=== PATIENT | female | born 1950 | race Caucasian/White ===

== ENCOUNTER 2018-01-23 07:28 | Outpatient (CLI) | payer MEDICARE, OTHER, SELFPAY ==
[2018-01-23] VITALS (9 sets, daily range): BP systolic 120–142; BP diastolic 67–89; PULSE 65–74; RESP 14–20; TEMP 36.6; O2SAT 97–100
--- NOTE | 2018-01-23 07:32 | DI.RAD.S_ITS ---
PROCEDURE: PAIN L/S FACET INJ/BLK 1ST [place] COMPARISON: None. INDICATIONS: SPONDYLOSIS FINDINGS: 6 spot fluoroscopic intraoperative views demonstrating placement of spinal needles in the left and right L4, L5 and S1 levels. Appropriate placement was confirmed with contrast injection. Dictated by: Deonte Chapa M.D. on 01/23/2018 at 13:27 Approved by: Deonte Chapa M.D. on 01/23/2018 at 13:29
[2018-01-23] MEDS: MIDAZOLAM 5 MG/5 ML VIAL IV (08:25)
[2018-01-23] MEDS: IOPAMIDOL 15 ML VIAL 3 ML INJ (08:34)
[2018-01-23] MEDS: BETAMETHASONE 30 MG/5 ML MDV 6 MG INJ (08:34)
[2018-01-23] MEDS: BUPIVACAINE 0.5% (PF) VIAL 2 ML INJ (08:35)
--- NOTE | 2018-01-23 08:47 | P.PCN_ITS ---
Procedures Date/Time Date of procedure: 01/23/18 Time of procedure: 08:45 General Procedure description: POST OP DIAGNOSIS 1. FACET ARTHROPATHY PROCEDURES 1. BILATERAL- L4, L5 and S1 MB BLOCKS PHYSICIAN: DO KIP Rodriguez Ely is referred by Dr. Mcclain for treatment of Bilateral Axial LBP. DESCRIPTION OF PROCEDURE Fluoroscopically guided, contrast-controlled bilateral L4, L5 and S1 medial branch blocks with 0.5cc of 0.5% Marcaine. Following denial of allergy and review of potential side effects and complications, including, but not necessarily limited to, infection, allergic reaction, local tissue breakdown, nerve injury, paralysis, stroke and possible , the patient indicated that the patient understood and agreed to proceed. An informed consent document was signed by the patient, witnessed by a nurse, and placed in the patient's chart. After review of previous anaesthesic history and IV conscious sedation the patient was deemed safe to proceed with todays procedure with IV conscious sedation as ASA class II designation. Safety time-out was performed to confirm patient ID, procedure to be performed and site of procedure. IV sedation was accomplished with a combination of 4mg of Versed and 50mcg of Fentanyl administered by the RN after DO order, titrated to patient comfort during the course of the procedure while the patient remained responsive to all verbal commands In the prone position, following sterile prep and drape of the lumbar region, the right L4, L5 and S1 anatomical location of the medial branch of the dorsal ramus was identified fluoroscopically. Subsequently an anesthetic skin wheal using 1% lidocaine solution was initiated at each of the anatomical spots. Subsequently then a 22-gauge 3.5-inch spinal needle was atraumatically introduced and advanced under fluoroscopic guidance at each of the corresponding sites at the right L4, L5 and S1 MB. After negative aspiration, 0.2 cc of Isovue 200 was injected, confirming placement without vascular or intrathecal uptake. Subsequently then 0.5 cc of 0.5% Marcaine solution was injected at each of the corresponding sites at the right L4, L5 and S1 medial branch locations. The identical procedure was replicated on the left. The patient tolerated the procedure well without signs or symptoms of complications prior to transfer to the recovery area continued monitoring without incident. Post-procedure, the patient was monitored initiating provocative activities to measure the amount of relief from block of the facetogenic pain. The patient reported a VAS of 7 prior to the procedure and a post-procedure VAS of 1. It has been a pleasure to assist in the diagnostic and therapeutic care of your patient. Total Fluoroscopy Time: 24.8 seconds Total Conscious Sedation Time: 24min POST OP INSTRUCTIONS The patient was provided with a Pain Log to complete over the next several hours and subsequent days prior to the patient's follow up with the ordering physician. 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 The patient is aware , was provided, once again, with a Pain Log and will follow up with the referring physician for review and clinical correlation Anil Coleman DO Complications: none
--- NOTE | 2018-01-23 08:47 | PC.NURSE ---
pt off table and stable,she is awake going to pre procedure room.
== END 2018-01-23 09:21 | disposition home or self-care (01) ==
LOC: RAD 07:30
PROVIDERS: PCP Family Medicine; Visit Provider Physical Medicine & Rehabilitation
DX: M47.817 Spondylosis without myelopathy or radiculopathy, lumbosacral region (principal)
CPT/HCPCS: 64493; 64494; 99152; J0702; J2250

== ENCOUNTER → 2018-01-29 10:08 | Outpatient (CLI) | payer MEDICARE, OTHER, SELFPAY | PROVIDERS: Family Provider Physical Medicine & Rehabilitation; PCP Family Medicine; Referring Provider Orthopaedic Surgery; Visit Provider Family Medicine | DX: M85.851 Other specified disorders of bone density and structure, right thigh (principal); Z78.0 Asymptomatic menopausal state; Z87.891 Personal history of nicotine dependence | CPT/HCPCS: 77080 ==

== ENCOUNTER 2018-03-12 07:34 | Outpatient (CLI) | payer MEDICARE, OTHER, SELFPAY ==
[2018-03-12] VITALS (13 sets, daily range): BP systolic 122–145; BP diastolic 64–90; PULSE 35–80; RESP 16–18; TEMP 36.2; O2SAT 95–100
--- NOTE | 2018-03-12 07:39 | DI.RAD.S_ITS ---
PROCEDURE: PAIN L/S MED/LAT N RFA BILAT INDICATIONS: SPONDYLOSIS FINDINGS: Fluoroscopic spot filming was performed to verify placement of spinal needles at the L4, L5, S1 level(s), as labeled on the films. Appropriate location(s) of the needle tip(s) was confirmed by injection of iodinated contrast. Dictated by: Deonte Chapa M.D. on 03/13/2018 at 9:02 Approved by: Deonte Chapa M.D. on 03/13/2018 at 9:03
[2018-03-12] MEDS: MIDAZOLAM 5 MG/5 ML VIAL IV (09:50)
[2018-03-12] MEDS: fentaNYL 100 MCG/2 ML INJ IV (09:55)
[2018-03-12] MEDS: BUPIVACAINE 0.5% (PF) VIAL 2 ML INJ (10:12)
[2018-03-12] MEDS: LIDOCAINE 1% 20 ML INJ 10 ML INJ (10:12)
--- NOTE | 2018-03-12 10:29 | PC.NURSE ---
TRANSPORTING PT TO POST PROC AREA IN STABLE POSITION
--- NOTE | 2018-03-12 10:32 | P.PCN_ITS ---
Procedures Date/Time Date of procedure: 03/12/18 Time of procedure: 10:31 General Procedure description: PREOP DIAGNOSIS 1. RECALCITRANT FACET ARTHROPATHY, POST OP DIAGNOSIS 1. RECALCITRANT FACET ARTHROPATHY PROCEDURES 1. BILATERAL L4 AND L5 MEDIAL BRANCH RADIOFREQUENCY NEUROTOMY AND S1 DORSAL RAMUS BRANCH RADIOFREQUENCY NEUROTOMY, PHYSICIAN: Anil Coleman DO INDICATIONS: Ely is referred by Dr. Mcclain for treatment of facet arthropathy. DESCRIPTION OF PROCEDURE Right L4 and L5 medial branch radiofrequency neurotomy and right S1 dorsal ramus radiofrequency neurotomy under fluoroscopy with conscious sedation. The patient is well known to this clinic having undergone previous facet injections with good but temporary relief. The patient has experienced appropriate, concordant relief with previous facet and median branch blocks but the patient's pain has been recalcitrant to further conservative measures. Therefore, based upon the patient's relief and persistent symptoms, the patient is considered an appropriate candidate for facet rhizotomy. All of the patient' s questions regarding the risks versus benefits of the procedure, including, but not limited to, bleeding, infection, temporary as well as lasting nerve injury, paralysis, stroke, and , as well treatment alternatives were answered to satisfaction. After obtaining informed consent, denial of pertinent drug allergies, as well as being made aware of the potential risks of bleeding, infection, spinal cord trauma, paralysis, temporary and permanent nerve damage, seizure, stroke, and possible , the patient was brought to the fluoroscopy suite and positioned prone on the fluoroscopy table. The lumbar region was prepped with Betadine and covered with a fenestrated drape in the usual sterile fashion. Appropriate monitors applied including pulse oximeter, pulse, and blood pressure for regular monitoring throughout the procedure. After review of previous anaesthesic history and IV conscious sedation the patient was deemed safe to proceed with todays procedure with IV conscious sedation as ASA class II designation. Safety time-out was performed to confirm patient ID, procedure to be performed and site of procedure. IV sedation was accomplished with a combination of 4mg of Versed and 50mcg of Fentanyl administered by the RN after DO order, titrated to patient comfort during the course of the procedure while the patient remained responsive to all verbal commands. After local infiltration using 1% lidocaine, under fluoroscopic guidance, a 10- cm RF insulated needle with a 10-mm active tip was positioned parallel to the junction of the right sacral ala and the superior articulating process where the S1 dorsal ramus resides. Needle placement was confirmed with sensory stimulation at 50 Hz, with motor stimulation of .5v on the right which produced local stimulation without radicular component. The stimulation was then increased to 1.5v with, once again, only local multifidus stimulation without radicular component. This was then followed by two discreet lesions performed at 80 degrees Celsius for 90 seconds each. The needle was then removed and the identical procedure was performed along the length of the right L5 medial branch with motor stimulation at .7v on the right. The identical procedure was once again performed along the length of the right L4 medial branch with motor stimulation of .5v on the right. The identical procedure was repeated on the left. The patient tolerated the procedure well without signs or symptoms of complications prior to transfer to the recovery area continued monitoring without incident. The patient was then transferred to the recovery area where they were observed for an appropriate period of time after the injection. The patient reported a VAS score of 9 prior to the procedure and a post-procedure VAS of 0. Total Fluoroscopy Time: 22.7 seconds Total Conscious Sedation Time: 34min POST OP INSTRUCTIONS The patient was provided a Pain Log to continue to record the patient's response to the target-specific procedure prior to the patient's follow-up visit with the referring physician. Additionally, specific post-injection care instructions and a contact number to our office were provided if concerns arise regarding possible complications associated with the procedure are suspected. Anil Coleman DO Complications: none
--- NOTE | 2018-03-12 11:00 | PC.NURSE ---
Received pt from Geno LÓPEZ, pt awake and alert, able to move from W/C to chair without difficulty. Resumed monitoring.
--- NOTE | 2018-03-13 11:22 | PC.NURSE ---
Follow Up call made. Pt did not answer so message left.
--- NOTE | 2018-03-13 12:39 | PC.NURSE ---
Called pt back and she answered phone she had a great night, everything was going great until she started to vacuum and then she got a cramp in her back. She just wanted to make sure everything was ok. I let her know it was and that she should try vacuuming again later and see how she does. She understands these instructions.
== END 2018-03-12 11:05 ==
LOC: RAD 07:37
PROVIDERS: Family Provider Physical Medicine & Rehabilitation; PCP Family Medicine; Visit Provider Physical Medicine & Rehabilitation
DX: M47.817 Spondylosis without myelopathy or radiculopathy, lumbosacral region (principal); M47.816 Spondylosis without myelopathy or radiculopathy, lumbar region
CPT/HCPCS: 64635; 64636; 99152; 99153; J2250; J3010

== ENCOUNTER → 2018-04-16 10:21 | Outpatient (CLI) | payer MEDICARE, OTHER, SELFPAY ==
--- NOTE | 2018-04-16 09:00 | DI.MG.S_ITS ---
Patient Name: SAL HUERTAS date: 1950 Sex: F Attending Physician: Johny Indications: Date: 04/16/2018 10:30 At the request of: KENYATTA THOMPSON Procedure: MM screening mammo BI BILATERAL DIGITAL SCREENING MAMMOGRAM 3D/2D WITH CAD: 04/16/2018 CLINICAL: Routine screening. Family history of breast cancer. Comparison is made to exams dated: 02/01/2017 mammogram, 01/31/2016 mammogram, and 01/15/2015 mammogram - [facility]. There are scattered fibroglandular elements in both breasts. Current study was also evaluated with a Computer Aided Detection (CAD) system. No significant masses, calcifications, or other findings are seen in either breast. There has been no significant interval change. IMPRESSION: NEGATIVE There is no mammographic evidence of malignancy. A 1 year screening mammogram is recommended. This exam was interpreted at Station ID: [id number]. NOTE: For mammograms, a report in lay terms will be sent to the patient. Approximately 15% of breast malignancies will not be visualized mammographically. In the management of a palpable breast mass, a negative mammogram must not discourage biopsy of a clinically suspicious lesion. Electronically Signed By: Isael foreman/grupo:04/16/2018 12:40:24 letter sent: Normal Exam ACR BI-RADS Category 1: Negative [id number]
== END ==
PROVIDERS: Family Provider Physical Medicine & Rehabilitation; PCP Family Medicine; Visit Provider Family Medicine
DX: Z12.31 Encounter for screening mammogram for malignant neoplasm of breast (principal); Z80.3 Family history of malignant neoplasm of breast
CPT/HCPCS: 77063; 77067

== ENCOUNTER 2018-04-23 13:10 | Outpatient (CLI) | payer MEDICARE, OTHER, SELFPAY ==
[2018-04-23] VITALS (7 sets, daily range): BP systolic 112–140; BP diastolic 66–99; PULSE 66–80; RESP 16–20; TEMP 36.7; O2SAT 95–100
--- NOTE | 2018-04-23 13:14 | DI.RAD.S_ITS ---
PROCEDURE: PAIN L/S TRANSFORAMINAL INJECT INDICATIONS: SPINAL STENOSIS FINDINGS: Fluoroscopic spot filming was performed to verify placement of spinal needles at the left L2-L3 facet region for epidural steroid injection, as labeled on the films. Appropriate location(s) of the needle tip(s) was confirmed by injection of iodinated contrast. IMPRESSION: Successful needle tip localization on the left adjacent to the left L2-L3 facet region for perineural epidural steroid injection. Dictated by: Hugo Hodgson M.D. on 04/23/2018 at 15:12 Approved by: Hugo Hodgson M.D. on 04/23/2018 at 15:13
[2018-04-23] MEDS: MIDAZOLAM 5 MG/5 ML VIAL IV (13:55)
[2018-04-23] MEDS: BUPIVACAINE 0.25% (PF) VIAL 2 ML INJ (13:59)
[2018-04-23] MEDS: methylPREDNISolone acetate 80 MG/ML VIAL INJ (13:59)
[2018-04-23] MEDS: DEXAMETHASONE 10 MG/ML VIAL 20 MG INJ (13:59)
[2018-04-23] MEDS: IOPAMIDOL 15 ML VIAL 3 ML INJ (13:59)
--- NOTE | 2018-04-23 14:08 | PC.NURSE ---
pt tolerated procedure well. Able to get off table with minimal assist. Transferred pt via W/C to pre procedure room for continued monitoring with Geno LÓPEZ.
--- NOTE | 2018-04-23 14:13 | P.PCN_ITS ---
Procedures Date/Time Date of procedure: 04/23/18 Time of procedure: 14:12 General Procedure description: PROVIDER: Anil Coleman DO Operative Note PREOP DIAGNOSIS 1. FORAMINAL STENOSIS WITH LE SYMPTOMS, POST OP DIAGNOSIS 1. FORAMINAL STENOSIS WITH LE SYMPTOMS, PROCEDURES 1. FLUOROSCOPICALLY GUIDED CONTRAST CONTROLLED TRANSFORAMINAL EPIDURAL STEROID INJECTION - LEFT L3/4 TFESI SURGEON: Anil Coleman, DO INDICATIONS Ely is referred by Dr. Mcclain for treatment of Foraminal Stenosis with left LE Symptoms FINDINGS Foraminal Nerve Root Compression secondary to disc disease and facet hypertrophy DESCRIPTION OF PROCEDURE Following denial of allergy and review of potential side effects and complications, including, but not necessarily limited to, infection, allergic reaction, local tissue breakdown, stroke, temporary or permanent nerve injury, paralysis, and possible , the patient indicated that the patient understood and agreed to proceed. An informed consent document was signed by the patient, witnessed by a nurse, and placed in the patient's chart. Additionally, other treatment options including medications, modalities, and physical therapy were reviewed with the patient. After review of previous anaesthesic history and IV conscious sedation the patient was deemed safe to proceed with todays procedure with IV conscious sedation as ASA class II designation. Safety time-out was performed to confirm patient ID, procedure to be performed and site of procedure. IV sedation was accomplished with a combination of 4mg was administered by the RN after DO order , titrated to patient comfort during the course of the procedure while the patient remained responsive to all verbal commands In the prone position following sterile prep and drape of the lumbar region, the left L3/4 posterior neuroforamen was identified fluoroscopically. The skin was anesthetized via a 25-gauge 1.5-inch needle with 1% lidocaine solution. At this point, a 25-gauge 3.5-inch spinal needle was atraumatically introduced and advanced under fluoroscopic guidance through the posterior left L3/4 neuroforamen to approximately the anterior aspect of the canal. Depth was confirmed on lateral view. Following negative aspiration, injection of approximately 1.5 cc of Isovue 200 under live fluoroscopy in the AP view confirmed excellent flow along the nerve root, into the epidural space without vascular or intrathecal uptake observed Radiological data, including multiple fluoroscopic views of the lumbosacral spine, reveal a spinal needle at the left L3/4 posterior neuroforamen. Subsequent views show flow of contrast material flowing superiorly and inferiorly along the nerve root confirming epidural flow. Subsequently, a test dose of 1.5 cc of 1% lidocaine solution was administered and patient was observed for two minutes for signs or symptoms of complications , including abdominal pain, shortness of breath, bilateral upper or lower extremity weakness, nausea and vomiting, prior to steroid injection. At this point, a total of 3 cc or 20 mg of dexamethasone and 80mg Depo medrol was injected without incident. The patient tolerated the procedure well without signs or symptoms of complications prior to transfer to the recovery area continued monitoring without incident. The patient was then transferred to the recovery area where they were observed for an appropriate time after the injection. The patient reported a VAS score of 7 prior to the procedure and a post-procedure VAS of 0. Total Fluoroscopy Time: 24.2 seconds Total Conscious Sedation Time: 24min POST OP INSTRUCTIONS The patient was provided a Pain Log to continue to record their response to the target-specific procedure prior to follow-up visit with their referring physician. Additionally, specific post-injection care instructions and a contact number to our office were provided if concerns arise regarding possible complications associated with the procedure are suspected. Anil Coleman, Complications: none
--- NOTE | 2018-04-24 13:07 | PC.NURSE ---
Follow up call made and pt reports the left hip is aching, didn't sleep well and has a little right sided sciatica but its just an ache 2/10 a twinge, She said I think we got it this time. She was appreciative for our care.
== END 2018-04-23 14:38 | disposition home or self-care (01) ==
LOC: RAD 13:13
PROVIDERS: PCP Family Medicine; Visit Provider Physical Medicine & Rehabilitation
DX: M48.062 Spinal stenosis, lumbar region with neurogenic claudication (principal); M51.16 Intervertebral disc disorders with radiculopathy, lumbar region
CPT/HCPCS: 64483; 99152; J1040; J1100; J2250

== ENCOUNTER 2018-05-14 08:11 | Outpatient (CLI) | payer MEDICARE, OTHER, SELFPAY ==
[2018-05-14] VITALS (7 sets, daily range): BP systolic 116–125; BP diastolic 66–78; PULSE 65–71; RESP 16; TEMP 36.3; O2SAT 96–99
--- NOTE | 2018-05-14 08:13 | DI.RAD.S_ITS ---
PROCEDURE: PAIN SI JOINT INJECTION INDICATIONS: SPONDYLOSIS FINDINGS: Fluoroscopic spot filming was performed to verify placement of spinal needles at the left sacroiliac joint level(s), as labeled on the films. Appropriate location(s) of the needle tip(s) was confirmed by injection of iodinated contrast. Dictated by: Deonte Chapa M.D. on 05/14/2018 at 10:51 Approved by: Deonte Chapa M.D. on 05/14/2018 at 10:51
--- NOTE | 2018-05-14 08:51 | PC.NURSE ---
pt reporting had difficulty getting call backs.
[2018-05-14] MEDS: MIDAZOLAM 5 MG/5 ML VIAL IV (09:15)
[2018-05-14] MEDS: fentaNYL 100 MCG/2 ML INJ IV (09:17)
[2018-05-14] MEDS: IOPAMIDOL 15 ML VIAL 3 ML INJ (09:23)
[2018-05-14] MEDS: BETAMETHASONE 30 MG/5 ML MDV 12 MG INJ (09:23)
[2018-05-14] MEDS: BUPIVACAINE 0.5% (PF) VIAL 2 ML INJ (09:23)
--- NOTE | 2018-05-14 09:24 | PC.NURSE ---
assisting pt off table and transporting to post proc area in stable condition
--- NOTE | 2018-05-14 09:31 | P.PCN_ITS ---
Procedures Date/Time Date of procedure: 05/14/18 Time of procedure: 09:30 General Procedure description: PREOP Dx: Sacroiliac joint pain/DJD POST OP DX: Sacroiliac Joint Pain/DJD Procedures: Fluoroscopic guided contrast controlled left sacroiliac joint injection Physician: Anil Coleman D.O. Indications: Ely is referred by for treatment of left sacroiliac joint DJD Description of procedure Fluoroscopic guided, contrast controlled left sacroiliac joint injection Following denial of allergies and review of potential side effects and complications, including, but not necessarily limited to, infection, allergic reaction, local tissue breakdown, temporary as well as permanent nerve injury, paralysis, stroke and possible , the patient indicated that they understood and agreed to proceed. An informed consent was signed by the patient , witnessed by a nurse, and placed in the patient's chart. Additionally, other treatment options including modalities, medications, and physical therapy were reviewed with the patient. After review of previous anaesthesic history and IV conscious sedation the patient was deemed safe to proceed with todays procedure with IV conscious sedation as ASA class II designation. Safety time-out was performed to confirm patient ID, procedure to be performed and site of procedure. IV sedation was accomplished with a combination of 3mg of Versed and 50mcg of Fentanyl was administered by the RN after DO order, titrated to patient comfort during the course of the procedure while the patient remained responsive to all verbal commands. In the prone position following sterile prep and drape of the pelvic region, the hyper lucency on in the inferior aspect of the left sacroiliac joint was identified fluoroscopically the skin was anesthetized be a 25 gauge 1 eventual with approximately 2 cc of 1% lidocaine solution. At this point, a 22 gauge 3 in spinal needle was atraumatically introduced and advanced under fluoroscopic guidance into the inferior aspect of the left sacroiliac joint. Following negative aspiration, approximately 0.3 cc of Isovue-300 was injected confirming intra-articular placement without vascular uptake. Radiographic data, including multiple fluoroscopic views of the pelvis, reveals a spinal needle in the left sacroiliac joint hyper lucent zone. Subsequent view show flow contrast tear superiorly and inferiorly within the joint capsule without vascular intrathecal uptake. At this point a total of 1 cc or 0 8 of 0.5% Marcaine was combined with 1 cc of 6 mg of betamethasone was injected without incident. The patient tolerated the procedure well without signs or symptoms of complications prior to transfer to the recovery area for further monitoring. The patient was then transferred to the recovery area with a bur observed for an appropriate time after the injection. The patient reverted a vas score of 7 prior to the procedure and postprocedure vas of 1. Total fluoroscopy time: 22.7 sec Total conscious sedation time: 24 min Postop instructions The patient was provided with a pain like to continue to record the patient's response to the target specific procedure prior to the patient's follow-up visit with the referring physician. Additionally, specific post injection care instructions and a contact number to our office were provided if concerns arise regarding the possible complications associated with procedure are suspected. Anil Coleman D.O. Complications: none
--- NOTE | 2018-05-14 09:43 | PC.NURSE ---
alert and awake, conversing with friends, tolerating cookies and water. denies pain, denies paresthesia, moving all extremities well.
--- NOTE | 2018-05-14 10:59 | PC.NURSE ---
late 928 pt returned via w/c, post procedure, is alert and able to get from w/c to chair with standby assist, and resumed monitoring from jayjay estrada.
--- NOTE | 2018-05-15 13:48 | PC.NURSE ---
FOLLOW UP CALL MADE. PT C/O INCREASED PAIN TODAY DUE TO LONG RIDE IN CAR BUT DENIES OTHER QUESTIONS/CONCERNS. REMINDED PT THAT IT IS COMMON FOR PAIN TO INCREASE THE DAY AFTER THE PROCEDURE. ENCOURAGED HER TO CONTINUE PAIN LOG AND CALL CLINIC IF THINGS CONTINUE TO GET WORSE.
== END 2018-05-14 10:01 | disposition home or self-care (01) ==
LOC: RAD 08:12
PROVIDERS: PCP Family Medicine; Visit Provider Physical Medicine & Rehabilitation
DX: M53.3 Sacrococcygeal disorders, not elsewhere classified (principal); M47.898 Other spondylosis, sacral and sacrococcygeal region; M47.817 Spondylosis without myelopathy or radiculopathy, lumbosacral region; M41.20 Other idiopathic scoliosis, site unspecified
CPT/HCPCS: 27096; 99152; J0702; J2250; J3010

== ENCOUNTER 2018-06-11 07:29 | Outpatient (CLI) | payer MEDICARE, OTHER, SELFPAY ==
[2018-06-11] VITALS (10 sets, daily range): BP systolic 114–138; BP diastolic 69–80; PULSE 67–75; RESP 16; TEMP 36.8; O2SAT 98–100
--- NOTE | 2018-06-11 07:31 | DI.RAD.S_ITS ---
PROCEDURE: PAIN L/S MED/LAT N RFA INDICATIONS: SPONDYLOSIS FINDINGS: Fluoroscopic spot filming was performed to verify placement of spinal needles at the L5, S1 and S2 level(s), as labeled on the films. Appropriate location(s) of the needle tip(s) was confirmed by injection of iodinated contrast. IMPRESSION: Fluoroscopy for pain management Dictated by: Cammie Ramirez M.D. on 06/11/2018 at 11:18 Approved by: Cammie Ramirez M.D. on 06/11/2018 at 11:21
[2018-06-11] MEDS: fentaNYL 100 MCG/2 ML INJ IV (08:30)
[2018-06-11] MEDS: MIDAZOLAM 5 MG/5 ML VIAL IV (08:30)
[2018-06-11] MEDS: BUPIVACAINE 0.5% (PF) VIAL 2 ML INJ (08:40)
[2018-06-11] MEDS: BETAMETHASONE 30 MG/5 ML MDV 12 MG INJ (08:40)
[2018-06-11] MEDS: LIDOCAINE 1% 20 ML INJ 10 ML INJ (08:40)
--- NOTE | 2018-06-11 09:01 | PC.NURSE ---
ASSISTING PT OFF TABLE AND TRANSPORTING TO POST PROC AREA IN STABLE CONDITION
--- NOTE | 2018-06-11 09:05 | PM.PROC.1 ---
Procedures Date/Time Date of procedure: 06/11/18 Time of procedure: 09:05 General Procedure description: PREOP DIAGNOSIS 1. RECALCITRANT FACET ARTHROPATHY, POST OP DIAGNOSIS 1. RECALCITRANT FACET ARTHROPATHY, PROCEDURES 1. LEFTT L5 MEDIAL BRANCH RADIOFREQUENCY NEUROTOMY AND LEFT S1 and S2 DORSAL RAMUS RADIOFREQUENCY NEUROTOMY PHYSICIAN: Anil Coleman DO INDICATIONS is referred by for treatment of facet arthropathy. DESCRIPTION OF PROCEDURE Left L5 medial branch radiofrequency neurotomy and left S1 and S2 dorsal ramus branch radiofrequency neurotomy under fluoroscopy with conscious sedation. The patient is well known to this clinic having undergone previous facet injections with good but temporary relief. The patient has experienced appropriate, concordant relief with previous facet and median branch blocks but the patient's pain has been recalcitrant to further conservative measures. Therefore, based upon the patient's relief and persistent symptoms, the patient is considered an appropriate candidate for facet rhizotomy. All of the patient's questions regarding the risks versus benefits of the procedure, including, but not limited to, bleeding, infection, temporary as well as lasting nerve injury, paralysis, stroke, and , as well treatment alternatives were answered to satisfaction. After obtaining informed consent, denial of pertinent drug allergies, as well as being made aware of the potential risks of bleeding, infection, spinal cord trauma, paralysis, temporary and permanent nerve damage, seizure, stroke, and possible , the patient was brought to the fluoroscopy suite and positioned prone on the fluoroscopy table. The lumbar region was prepped with Betadine and covered with a fenestrated drape in the usual sterile fashion. Appropriate monitors applied including pulse oximeter, pulse, and blood pressure for regular monitoring throughout the procedure. IV sedation was accomplished with a combination of 3mg of Versed and 50mcg of Fentanyl titrated to patient comfort during the course of the procedure while the patient remained responsive to all verbal commands. After local infiltration using 1% lidocaine, under fluoroscopic guidance, a 10-cm RF insulated needle with a 10-mm active tip was positioned parallel to the junction of the left sacral ala and the superior articulating process where the S1 and S2 dorsal ramus resides. Needle placement was confirmed with sensory stimulation at 50 Hz, with motor stimulation of .5v on the left which produced local stimulation without radicular component. The stimulation was then increased to 1.5v with, once again, only local multifidus stimulation without radicular component. This was then followed by two discrete lesions performed at 80 degrees Celsius for 90 seconds each. The needle was then removed and the identical procedure was performed along the length of the left L5 medial branch with motor stimulation at .7v on the left. The patient tolerated the procedure well without signs or symptoms of complications prior to transfer to the recovery area continued monitoring without incident. The patient was then transferred to the recovery area where they were observed for an appropriate period of time after the injection. The patient was then transferred to the recovery area where they were observed for an appropriate period of time after the injection. The patient reported a VAS score of 9 prior to the procedure and a post-procedure VAS of 0. Total Fluoroscopy Time: 22.7 seconds Total Conscious Sedation Time: 34min POST OP INSTRUCTIONS The patient was provided a Pain Log to continue to record the patient's response to the target-specific procedure prior to the patient's follow-up visit with the referring physician. Additionally, specific post-injection care instructions and a contact number to our office were provided if concerns arise regarding possible complications associated with the procedure are suspected. Anil Coleman DO Complications: none
--- NOTE | 2018-06-11 09:09 | P.PCN_ITS ---
Procedures Date/Time Date of procedure: 06/11/18 Time of procedure: 09:05 General Procedure description: PREOP DIAGNOSIS 1. RECALCITRANT FACET ARTHROPATHY, POST OP DIAGNOSIS 1. RECALCITRANT FACET ARTHROPATHY, PROCEDURES 1. LEFTT L5 MEDIAL BRANCH RADIOFREQUENCY NEUROTOMY AND LEFT S1 and S2 DORSAL RAMUS RADIOFREQUENCY NEUROTOMY PHYSICIAN: Anil Coleman DO INDICATIONS is referred by for treatment of facet arthropathy. DESCRIPTION OF PROCEDURE Left L5 medial branch radiofrequency neurotomy and left S1 and S2 dorsal ramus branch radiofrequency neurotomy under fluoroscopy with conscious sedation. The patient is well known to this clinic having undergone previous facet injections with good but temporary relief. The patient has experienced appropriate, concordant relief with previous facet and median branch blocks but the patient's pain has been recalcitrant to further conservative measures. Therefore, based upon the patient's relief and persistent symptoms, the patient is considered an appropriate candidate for facet rhizotomy. All of the patient's questions regarding the risks versus benefits of the procedure, including, but not limited to, bleeding, infection, temporary as well as lasting nerve injury, paralysis, stroke, and , as well treatment alternatives were answered to satisfaction. After obtaining informed consent, denial of pertinent drug allergies, as well as being made aware of the potential risks of bleeding, infection, spinal cord trauma, paralysis, temporary and permanent nerve damage, seizure, stroke, and possible , the patient was brought to the fluoroscopy suite and positioned prone on the fluoroscopy table. The lumbar region was prepped with Betadine and covered with a fenestrated drape in the usual sterile fashion. Appropriate monitors applied including pulse oximeter, pulse, and blood pressure for regular monitoring throughout the procedure. IV sedation was accomplished with a combination of 3mg of Versed and 50mcg of Fentanyl titrated to patient comfort during the course of the procedure while the patient remained responsive to all verbal commands. After local infiltration using 1% lidocaine, under fluoroscopic guidance, a 10- cm RF insulated needle with a 10-mm active tip was positioned parallel to the junction of the left sacral ala and the superior articulating process where the S1 and S2 dorsal ramus resides. Needle placement was confirmed with sensory stimulation at 50 Hz, with motor stimulation of .5v on the left which produced local stimulation without radicular component. The stimulation was then increased to 1.5v with, once again, only local multifidus stimulation without radicular component. This was then followed by two discrete lesions performed at 80 degrees Celsius for 90 seconds each. The needle was then removed and the identical procedure was performed along the length of the left L5 medial branch with motor stimulation at .7v on the left. The patient tolerated the procedure well without signs or symptoms of com plications prior to transfer to the recovery area continued monitoring without incident. The patient was then transferred to the recovery area where they were observed for an appropriate period of time after the injection. The patient was then transferred to the recovery area where they were observed for an appropriate period of time after the injection. The patient reported a VAS score of 9 prior to the procedure and a post- procedure VAS of 0. Total Fluoroscopy Time: 22.7 seconds Total Conscious Sedation Time: 34min POST OP INSTRUCTIONS The patient was provided a Pain Log to continue to record the patient's response to the target-specific procedure prior to the patient's follow-up visit with the referring physician. Additionally, specific post-injection care instructions and a contact number to our office were provided if concerns arise regarding possible complications associated with the procedure are suspected. Anil Coleman DO Complications: none
--- NOTE | 2018-06-11 09:15 | PC.NURSE ---
pt returned post procedure via wheelchair, able to get into chair with minimal assist. Pt awake and alert. Resumed monitoring from Geno LÓPEZ.
--- NOTE | 2018-06-12 12:48 | PC.NURSE ---
FOLLOW UP CALL MADE, PT STATES SHE IS EXPERIENCING DECREASED PAIN AND DENIES QUESTIONS/CONCERNS.
== END 2018-06-11 09:32 ==
LOC: RAD 07:30
PROVIDERS: PCP Family Medicine; Visit Provider Physical Medicine & Rehabilitation
DX: M47.816 Spondylosis without myelopathy or radiculopathy, lumbar region (principal); M47.817 Spondylosis without myelopathy or radiculopathy, lumbosacral region; M41.20 Other idiopathic scoliosis, site unspecified
CPT/HCPCS: 64635; 64636; 99152; J0702; J1100; J2250; J3010

== ENCOUNTER → 2018-07-12 13:09 | Outpatient (CLI) | payer MEDICARE, OTHER, SELFPAY ==
--- NOTE | 2018-07-12 14:33 | DI.MRI.S_ITS ---
PROCEDURE: MR LUMBAR SPINE WO CON INDICATIONS: lumbosacral spondylosis TECHNIQUE: Noncontrast sagittal T1 spin echo and T2 fast echo, sagittal STIR, axial T1 and T2 fast spin echo through the lumbar spine. In cases with scoliosis, additional coronal T2 fast spin echo may be performed. COMPARISON: [facility], , L-SPINE WITHOUT CONTRAST, 10/13/2016, 17:49. FINDINGS: Image quality: Excellent. Alignment and Curvature: Mild to moderate dextroscoliosis centered at L2-3 level is seen. Minimal anterolisthesis of L4 on L5 is noted. Bone Marrow: Decreased intervertebral disc space and degenerative endplate changes are noted throughout lumbar spine more prominent at L2-3 and L4-5 levels. No acute vertebral body compression fractures. Spinal Cord: Conus medullaris terminates at the L1 level. Visualized cord demonstrates normal signal and size. Paraspinous Soft Tissues: No paravertebral masses. L1-L2: Normal appearance. L2-L3: There is near-complete loss of intervertebral disc space and disc desiccation. Diffuse disc bulge and bilateral facet arthrosis is seen with no significant central canal stenosis or neuroforaminal narrowing. L3-L4: There is broad-based disc bulge and bilateral facet arthrosis causing mild central canal stenosis and mild bilateral neuroforaminal narrowing. L4-L5: Right base disc bulge and bilateral facet arthrosis is seen causing mild/moderate central canal stenosis and left worse than right bilateral neuroforaminal narrowing. Bulging disc likely contacting exiting left L4 nerve root at this level.. L5-S1: There is broad-based disc bulge and bilateral facet arthrosis causing moderate right-sided neuroforaminal narrowing. No significant central canal stenosis.. IMPRESSION: 1. Mild to moderate dextroscoliosis of lumbar spine centered at L2-3 level. Flores-white anterolisthesis of L4 on L5. No compression fracture. 2. Degenerative disc bulge and bilateral facet arthrosis throughout lumbar spine causing mild to moderate central canal stenosis and bilateral neuroforaminal narrowing more prominent at L4-5 level as above. Dictated by: Randal Nieto M.D. on 07/12/2018 at 15:21 Approved by: Randal Nieto M.D. on 07/12/2018 at 15:26
== END ==
PROVIDERS: PCP Family Medicine; Visit Provider Physical Medicine & Rehabilitation
DX: M47.817 Spondylosis without myelopathy or radiculopathy, lumbosacral region (principal); M47.816 Spondylosis without myelopathy or radiculopathy, lumbar region; M51.36 Other intervertebral disc degeneration, lumbar region; M51.37 Other intervertebral disc degeneration, lumbosacral region; M48.061 Spinal stenosis, lumbar region without neurogenic claudication; M48.07 Spinal stenosis, lumbosacral region; M43.16 Spondylolisthesis, lumbar region; M41.26 Other idiopathic scoliosis, lumbar region; M99.89 Other biomechanical lesions of abdomen and other regions
CPT/HCPCS: 72148

== ENCOUNTER → 2018-11-13 08:03 | Outpatient (CLI) | payer MEDICARE, OTHER, SELFPAY ==
--- NOTE | 2018-11-22 15:45 | P.HOLT.S_ITS ---
Javascript Ui Developer Report Referral & Results Date Patient Seen: 11/13/18 Requesting provider: Anil Mcclain Indication: Palpitations Duration of monitoring (days): 3 Diary information: There were 3 patient diary entries and 3 patient triggered events. These were associated variously was sinus rhythm, ventricular bigeminy, and ventricular ectopic depolarizations Data: Minimum heart rate identified was 46 beats per minute at 04:46 on 11/14/2018 Maximum sinus heart rate was 120 beats per minute at 09:58 on 11/14/2018 Maximum overall heart rate was 140 beats per minute at 00:02 on 11/16/2017 and associated with a supraventricular tachycardia/atrial tachycardia Patient had rare PACs Patient had more frequent PVCs, approximately 2.5% of identified beats were PVCs including a 12nd run of ventricular bigeminy and 1 minutes 7 seconds a run of ventricular trigeminy No other supraventricular dysrhythmias or runs were identified Impression: 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 Based on patient's reported events, most likely etiology for reported palpitations are ventricular premature depolarizations
== END ==
PROVIDERS: PCP Family Medicine; Visit Provider Family Medicine
DX: R00.2 Palpitations (principal)
CPT/HCPCS: 0296T; 0298T

== ENCOUNTER 2019-03-14 11:55 | Day surgery (SDC) | payer MEDICARE, OTHER, SELFPAY ==
[2019-03-14] VITALS (7 sets, daily range): BP systolic 110–129; BP diastolic 50–71; PULSE 67–95; RESP 13–22; TEMP 36.3–36.8; O2SAT 94–98; BMI 26.5
--- NOTE | 2019-03-14 07:42 | P.HP_ITS ---
History of Present Illness History of Present Illness Date Patient Seen: 03/14/19 Time Patient Seen: 13:06 Chief complaint: [id number] SCREENING COLONOSCOPY Narrative: 68 year old female comes in today for consideration of a screening colonoscopy. She has had 2 previous colonoscopies with a history of polyps. There have been no lower GI symptoms suggesting disease such as change in bowel habits, bleeding, abdominal pain or anemia. There's been no family history of colon cancer or colon polyps. Overall health issues have been stable, including no major cardiac events for at least 6 weeks. PCP: Dr. Mcclain Past medical history: Degenerative joint disease, thumb Anxiety Obstructive sleep apnea Sciatica Hyperlipidemia Lichen sclerosis Past surgical history: Right partial medial meniscus tear repair Family history: Father: Heart disease, hypertension, hyperlipidemia Mother: Lung cancer, liver cancer Siblings: Breast cancer Family history of coronary heart disease in male less than 55 Social history: , works as a private caregiver. Patient History Family & Social History Tobacco & Substance use: Smoking Status Former smoker alcohol intake current Meds Home Medications and Allergies Home Medications Medication Instructions Recorded Confirmed Type Thera M Plus (ferrous fumarat) 1 tab PO DAILY #0 11/29/08 03/14/19 History ascorbic acid (vitamin C) [Vitamin 500 mg PO BID #0 11/29/08 03/14/19 History C] citalopram 40 mg PO DAILY #0 11/29/08 03/14/19 History simvastatin [Zocor] 20 mg PO BEDTIME #0 11/29/08 03/14/19 History tramadol 50 mg tablet 50 mg PO TID PRN #60 tab 07/17/18 03/14/19 Rx acetaminophen 500 mg tablet 1,000 mg PO DAILY tab 02/11/19 03/14/19 History baclofen 10 mg tablet 10 mg PO TID 02/11/19 03/14/19 History zinc/mag/vit d PO DAILY 02/11/19 02/11/19 History glucosamine lia-swzvckjzbw-fce 1 tab PO DAILY 03/14/19 03/14/19 History hydralazine 25 mg PO DAILY 03/14/19 03/14/19 History metoprolol succinate 25 mg PO BID 03/14/19 03/14/19 History qywz-vqct-hjh-zco-peg-uzwi-hor 1 tab PO DAILY 03/14/19 03/14/19 History [Tumersaid] Allergies Allergy/AdvReac Type Severity Reaction Status Date / Time No Known Drug Allergies Allergy Verified 03/14/19 12:12 Review of Systems Review of Systems ROS Unobtainable: All systems reviewed & are unremarkable except as noted in HPI and below Exam Narrative Exam Narrative: GENERAL: Alert and oriented, appearing stated age and in no acute distress. HEENT: Head normocephalic/atraumatic. LUNGS: Clear to ausculation bilaterally, no wheezes, rhonchi or rales. CV: Normal S1 and S2 with regular rate and rhythm, no audible murmurs, rubs or gallops. ABDOMEN: Soft, non-tender, non-distended, no organomegaly. Positive bowel sounds. EXTREMITIES: No clubbing, cyanosis, or edema. NEURO: Cranial nerves II through XII grossly intact, no focal deficits. PSYCH: Alert and oriented x 3. SKIN: No concerning lesions. Assessment & Plan Assessment & Plan narrative: 1. History of colon polyps 2. Screening for colon cancer Plan for colonoscopy. The nature and character of the procedure as well as anticipated results were discussed. The possibility of not completing the p rocedure was also discussed. Possible complications including aspiration pneumonia, bleeding, perforation and reaction to medications either for sedation or preparation and missed lesions were discussed. Questions were answered and proceeding to the colonoscopy was elected. Informed consent signed. I sincerely appreciate the referral allowing me to participate in this patient's care. Please contact me with any questions or concerns.
--- NOTE | 2019-03-14 07:47 | PM.OP.ENDO ---
Operative Date/Time/Diagnoses Date of procedure: 03/14/19 Time of procedure: 13:07 Pre-op diagnosis: 1. History of colon polyps 2. Screening for colon cancer Post-op diagnosis: other ( 1. Normal colonoscopy) Procedure & Clinicians Study performed: Colonoscopy Same procedure as scheduled: Yes Indications: 1. History of colon polyps 2. Screening for colon cancer Surgeon: Alanna Delaney Procedure Notes SCOAP/Timeout: 1:10 p.m. Procedure in detail: ENDOSCOPIST: Alanna Delaney MD Sedation RN: Janell Unger RN Sedation start time: 13:15 Sedation end time: 13:43 PROCEDURE: Colonoscopy INDICATIONS: 1. History of colon polyps 2. Screening for colon cancer MEDICATION: Levsin 0.125 mg sublingual, Versed 5 mg, fentanyl 250 mcg, and Romazicon 0.4 mg. ASA CLASS: 2 CECAL WITHDRAWAL TIME: 13 minutes COMPLICATIONS: Reversal of versed with Romazicon due to shallow breathing with excellent effect. EXTENT OF PROCEDURE: Cecum. QUALITY OF PREP: Good with portions of liquid stool. PROCEDURE: Prior to insertion of the colonoscope, a digital rectal examination was accomplished with circumferential palpation of the distal rectal mucosa without significant findings being noted. The high-definition pediatric colonoscope was passed into the rectum in the usual fashion and advanced over to the cecum with difficulty due to extreme tortuosity. Patient was in pain and increasing doses of fentanyl up to 250 mcg were administered with some but not total relief of symptoms. An additional 1 mg of Versed beyond the initial 4 mg was then given and patient developed shallow breathing, Romazicon 0.2 mg x2 administered with good effect. Patient remained comfortable throughout the remainder of the procedure. The ileocecal valve, appendiceal stoma, and medial wall all could be inspected and no abnormalities were seen. ASCENDING COLON: As the colonoscope was withdrawn, care was taken to expose and inspect the haustral folds and no abnormalities were seen. HEPATIC FLEXURE: Normal no polyps, diverticula or other abnormalities. TRANSVERSE COLON: Normal no polyps, diverticula or other abnormalities. DESCENDING COLON: Normal no polyps, diverticula or other abnormalities. SIGMOID COLON: Normal no polyps, diverticula or other abnormalities. RECTUM: Normal. J maneuver was produced. There was no significant perianal disease. The J maneuver was broken. The remainder of the rectum was inspected and there was no external hemorrhoid disease. The scope was withdrawn. IMPRESSION: 1. Normal colonoscopy PLAN: 1. Repeat colonoscopy in 5 years. 2. Will plan for anesthesiology assist at next colonoscopy secondary to patient's tortuous colon and need for deeper sedation. The possibility of a missed lesion including a malignancy has been discussed with the patient previously. Potential alarm symptoms have been discussed and should be reported immediately. Scope withdrawal time: 13 Sedation minutes: 28 Specimen(s): none sent Complications: other ( Reversal of Versed needed, accomplished with excellent result. Patient stable throughout.) Impression: Normal colonoscopy Post-procedure Recommendations: Colonscopy in 5 years Follow up: as needed Disposition: PACU
[2019-03-14] MEDS: SODIUM CHLORIDE 0.9% 1,000 ML 200 ML IV (12:35)
[2019-03-14] MEDS: HYOSCYAMINE 0.125 MG TABLET PO (12:55)
[2019-03-14] MEDS: fentaNYL 250 MCG/5 ML INJ IV (13:08)
[2019-03-14] MEDS: MIDAZOLAM 5 MG/5 ML VIAL IV (13:09)
[2019-03-14] MEDS: FLUMAZENIL 0.5 MG/5 ML MDV 0.2 MG IV ×2 (13:28→13:29)
--- NOTE | 2019-03-14 14:05 | SUR.PHASEI ---
Pt to PACU awake/drowsy, denies pain/nausea. Dr. lomax here talking with patient, explained drug reversal, including why it was given.
--- NOTE | 2019-03-14 14:17 | SUR.PHASEI ---
1415 stable, awake, oriented, denies pain, tolerating juice well.
== END 2019-03-14 15:45 | disposition home or self-care (01) ==
PROVIDERS: PCP Family Medicine; Visit Provider Student in an Organized Health Care Education/Training Program
PROC: 0DJD8ZZ Inspection of Lower Intestinal Tract, Via Natural or Artificial Opening Endoscopic (ICD-10-PCS; CPT 45378; principal; 2019-03-14 13:00)
DX: Z12.11 Encounter for screening for malignant neoplasm of colon (principal); Z86.010 Personal history of colon polyps
CPT/HCPCS: G0105; J2250; J3010

== ENCOUNTER 2019-03-18 09:21 | Outpatient (CLI) | payer MEDICARE, OTHER, SELFPAY ==
[2019-03-18] VITALS (8 sets, daily range): BP systolic 107–130; BP diastolic 61–81; PULSE 57–66; RESP 16; TEMP 36.8; O2SAT 95–100
--- NOTE | 2019-03-18 09:23 | DI.RAD.S_ITS ---
PROCEDURE: PAIN L/S TRANSFORAM INJECT ALBINA COMPARISON: None. INDICATIONS: SPINAL STENOSIS FINDINGS: 7 intraoperative fluoroscopy images demonstrate needle placement at L2-L3 bilaterally. IMPRESSION: Fluoroscopy for pain management. Dictated by: Cammie Ramirez M.D. on 03/18/2019 at 11:55 Approved by: Cammie Ramirez M.D. on 03/18/2019 at 11:56
[2019-03-18] MEDS: MIDAZOLAM 5 MG/5 ML VIAL IV (10:45)
[2019-03-18] MEDS: fentaNYL 100 MCG/2 ML INJ 50 MCG IV (10:45)
[2019-03-18] MEDS: BUPIVACAINE 0.25% (PF) VIAL 2 ML INJ (10:48)
[2019-03-18] MEDS: IOPAMIDOL 15 ML VIAL 3 ML INJ (10:49)
[2019-03-18] MEDS: BETAMETHASONE 30 MG/5 ML MDV 12 MG INJ (10:50)
[2019-03-18] MEDS: DEXAMETHASONE 10 MG/ML VIAL 20 MG INJ (10:51)
--- NOTE | 2019-03-18 11:04 | PM.PROC.1 ---
Procedures Date/Time Date of procedure: 03/18/19 Time of procedure: 11:04 General Procedure description: PROVIDER: Anil Coleman DO Operative Note PREOP DIAGNOSIS 1. FORAMINAL STENOSIS WITH BILATERAL LE SYMPTOMS POST OP DIAGNOSIS 1. FORAMINAL STENOSIS WITH BILATERAL LE SYMPTOMS PROCEDURES 1. FLUOROSCOPICALLY GUIDED CONTRAST CONTROLLED TRANSFORAMINAL EPIDURAL STEROID INJECTION - BILATERAL L2/3 TFESI SURGEON: Anil Coleman DO INDICATIONS [place] is referred by Dr. Mcclain for treatment of Foraminal Stenosis with Bilateral LE Symptoms FINDINGS Foraminal Nerve Root Compression secondary to disc disease and facet hypertrophy DESCRIPTION OF PROCEDURE Following review of allergy and review of potential side effects and complications, including, but not necessarily limited to, infection, allergic reaction, local tissue breakdown, stroke, temporary or permanent nerve injury, paralysis, and possible , the patient indicated that the patient understood and agreed to proceed. An informed consent document was signed by the patient, witnessed by a nurse, and placed in the patient's chart. Additionally, other treatment options including medications, modalities, and physical therapy were reviewed with the patient. After review of previous anaesthesic history and IV conscious sedation the patient was deemed safe to proceed with todays procedure with IV conscious sedation as ASA class II designation. Safety time-out was performed to confirm patient ID, procedure to be performed and site of procedure. IV sedation was accomplished with a combination of 2mg of Versed and 50mcg of Fentanyl was administered by the RN after DO order, titrated to patient comfort during the course of the procedure while the patient remained responsive to all verbal commands In the prone position following sterile prep and drape of the lumbar region, the left L2/3 posterior neuroforamen was identified fluoroscopically. The skin was anesthetized via a 25-gauge 1.5-inch needle with 1% lidocaine solution. At this point, a 25-gauge 3.5-inch spinal needle was atraumatically introduced and advanced under fluoroscopic guidance through the posterior left L2/3 neuroforamen to approximately the anterior aspect of the canal. Depth was confirmed on lateral view. Following negative aspiration, injection of approximately 1.5cc of Isovue 200 under live fluoroscopy in the AP view confirmed excellent flow along the nerve root, into the epidural space without vascular or intrathecal uptake observed. Radiological data, including multiple fluoroscopic views of the lumbosacral spine, reveal a spinal needle at the left L2/3 posterior neuroforamen. Subsequent views show flow of contrast material flowing superiorly and inferiorly along the nerve root confirming epidural flow. Subsequently, a test dose of 1.5cc of 1% lidocaine solution was administered and patient was observed for two minutes for signs or symptoms of complications, including abdominal pain, shortness of breath, bilateral upper or lower extremity weakness, nausea and vomiting, prior to steroid injection. At this point, a total of 2cc or 10mg of dexamethasone and 6mg betamethasone was injected without incident. Attention was then refocused to the right where the procedure was replicated to the right L2/3 TFESI. The patient tolerated the procedure well without signs or symptoms of complications prior to transfer to the recovery area continued monitoring without incident. The patient was then transferred to the recovery area where they were observed for an appropriate time after the injection. The patient reported a VAS score of 7 prior to the procedure and a post-procedure VAS of 2. Total Fluoroscopy Time: 24.2 seconds Total Conscious Sedation Time: 24min POST OP INSTRUCTIONS The patient was provided a Pain Log to continue to record their response to the target-specific procedure prior to follow-up visit with their referring physician. Additionally, specific post-injection care instructions and a contact number to our office were provided if concerns arise regarding possible complications associated with the procedure are suspected. Anil Coleman DO Complications: none
--- NOTE | 2019-03-18 11:06 | PC.NURSE ---
ACCEPTED CARE OF PT IN POST PROC AREA IN STABLE CONDITION. PT VSS, A&0X4, STEADY ON FEET.
--- NOTE | 2019-03-18 11:11 | PC.NURSE ---
Post procedure transfer note: Patient was medicated per providers orders. Patient tolerated procedure well. VSS, O2 sat WNL on 2L/AUTO DEALER. Able to sit up and transfer to [facility] with standby assist. Hand off report given to Gaye Collins RN. Pain level 0/10 on arrival. Transferred to recliner from [facility] with stand by assist at 1101.
== END 2019-03-18 11:54 | disposition home or self-care (01) ==
PROVIDERS: Family Provider Neurological Surgery; PCP Family Medicine; Visit Provider Physical Medicine & Rehabilitation
DX: M48.061 Spinal stenosis, lumbar region without neurogenic claudication (principal); M51.16 Intervertebral disc disorders with radiculopathy, lumbar region
CPT/HCPCS: 64483; 64484; 99152; J0702; J1100; J2250; J3010

== ENCOUNTER → 2019-04-25 07:58 | Outpatient (CLI) | payer MEDICARE, OTHER, SELFPAY ==
--- NOTE | 2019-04-25 | DI.ECHO.S_ITS ---
[facility] +---------+ [facility] +---------+ : : [address] : : : : [id number] : : : : Phone: [phone]+ Echocardiogram Report + + :Name: SAL HUERTAS Study Date: 04/25/2019 Height: 62 in : :[facility] Weight: 148 lb : : Gender: Female BSA: 1.7 m2 : :: 1950 Age: 68 yrs BP: 105/70 mmHg: : Performed By: Brooke Page : :Referring: KENYATTA THOMPSON : + + Interpretation Summary The left ventricle is normal in size, wall thickness, and systolic function without any focal wall motion abnormalities. The ejection fraction is estimated to be 60-65%. Diastolic parameters suggest a relaxation abnormality of the left ventricle, consistent with probable normal filling pressures. The right ventricle is normal in size and function. Pulmonary artery pressures cannot be estimated because of the lack of a measurable TR jet velocity. The left atrial size is normal. Right atrium is small. There is no significant valvular heart disease. The aortic root is normal size. Procedure: A two-dimensional transthoracic echocardiogram with color flow and Doppler was performed. The study quality was technically adequate. There is no prior echocardiogram noted for this patient. The patient was in bigeminy with a heart rate of 58-87 for a brief period at the beginning of the exam , but was in a normal sinus bradycardia for the majority of the exam. Left Ventricle: The left ventricle is normal in size, wall thickness, and systolic function without any focal wall motion abnormalities. The ejection fraction is estimated to be 60-65%. Diastolic parameters suggest a relaxation abnormality of the left ventricle, consistent with probable normal filling pressures. Right Ventricle: The right ventricle is normal in size and function. Atria: The left atrial size is normal. Right atrium is small. There is no Doppler evidence for an interatrial shunt. Mitral Valve: The mitral valve is normal in structure and function. There is trace mitral regurgitation. Aortic Valve: The aortic valve is trileaflet. The aortic valve opens well. There is trace aortic regurgitation. Tricuspid Valve: The tricuspid valve is normal in structure and function. There is a trace or physiologic amount of tricuspid regurgitation. Pulmonary artery pressures cannot be estimated because of the lack of a measurable TR jet velocity. Pulmonic Valve: The pulmonic valve is not well visualized. There is trace pulmonic regurgitation. There is no significant valvular heart disease. Great Vessels: The aortic root is normal size. The ascending aorta is normal in size. The pulmonary artery is not well visualized, but is probably normal size. The IVC is of normal diameter and collapses less than 50% with a sniff. This suggests a right atrial pressure of 8 mm Hg. Pericardium/ Pleura There is no pericardial effusion. There is an anterior echo-free space consistent with a fat pad. There is no pleural effusion. MMode/2D Measurements & Calculations LVIDd: 4.1 cm LVOT diam: 1.7 cm LVIDs: 3.3 cm Ao root diam: 3.1 cm FS: 21.0 % asc Aorta Diam: 3.1 cm EPSS: 0.40 cm IVSd: 0.48 cm LVPWd: 0.60 cm LV jenkins. diameter/BSA (cm/m^2): 2.4 LV sys. diameter/BSA (cm/m^2): 1.9 LA A2 area: 19.6 cm2 RA long axis: 4.6 cm LA A4 area: 16.1 cm2 RA area: 11.0 cm2 LA length (vol): 5.0 cm RA vol: 22.5 ml LA vol: 53.6 ml RA : 13.4 ml/m2 LA vol index: 31.9 ml/m2 IVC diam: 1.9 cm RVD1 (basal): 3.6 cm TAPSE: 2.2 cm Doppler Measurements & Calculations Ao V2 max: 140.0 cm/sec LVOT Max Darinel: 104.2 cm/sec Ao V2 mean: 97.0 cm/sec LV V1 max P.3 mmHg Ao max P.8 mmHg LV V1 VTI: 23.4 cm Ao mean P.1 mmHg ARMIDA(I,D): 1.6 cm2 Ao V2 VTI: 32.8 cm ARMIDA(V,D): 1.7 cm2 sev ratio: 0.71 ARMIDA indexed to BSA (cm^2/m^2): 0.95 MV E max darinel: 68.3 cm/sec PA V2 max: 78.2 cm/sec MV A max darinel: 97.9 cm/sec PA V2 mean: 53.3 cm/sec MV E/A: 0.70 PA mean P.3 mmHg Med Peak E' Darinel: 6.1 cm/sec PA Accel Time: 0.14 sec E/E' med: 11.2 Lat Peak E' Darinel: 5.9 cm/sec E/E' lat: 11.6 E/e' average: 11.4 MV dec time: 0.22 sec MV P1/2t: 64.9 msec MV P1/2t max darinel: 68.7 cm/sec SV(LVOT): 52.7 ml MVA(2t): 3.4 cm2 Reading Physician:12:26 PM
== END ==
PROVIDERS: Family Provider Neurological Surgery; PCP Family Medicine; Visit Provider Family Medicine
DX: R00.2 Palpitations (principal)
CPT/HCPCS: 93306

== ENCOUNTER → 2019-05-09 07:49 | Outpatient (CLI) | payer MEDICARE, OTHER, SELFPAY ==
--- NOTE | 2019-05-09 | DI.RAD.S_ITS ---
PROCEDURE: FL UPPER GI SERIES INDICATIONS: Dysphagia, unspecified COMPARISON: None. FINDINGS: KUB: Preprocedural elevator troubleshooter film demonstrates a normal bowel gas pattern. No suspicious abdominal calcifications. Visualized solid organ contours appear normal. Bony structures appear unremarkable. Esophagus: Esophageal mucosa is normal on air-contrast views. On single-contrast views, there is normal esophageal peristalsis. There is a transient smooth spasm of the distal esophagus which causes delayed passage of the barium tablet which passes with copious amounts of water administered. A fixed stricture is not identified but a nonobstructing Schatzki's ring is seen. No extrinsic mass effects, or diverticula. There is a small hiatal hernia in the upright position which slightly enlarges in the recumbent position. Small amount of spontaneous gastroesophageal reflux. Stomach: The stomach is normally distensible, with normal rugal fold thickness. No mucosal masses or ulcers. Pylorus and duodenal bulb appear normal in morphology. Duodenal folds are normal in thickness as well. IMPRESSION: 1. Transient spasm of the distal esophagus. 2. Small fixed hiatal hernia. 3. Small amount of spontaneous gastroesophageal reflux. Dictated by: Michelle Sandoval M.D. on 05/09/2019 at 13:09 Approved by: Michelle Sandoval M.D. on 05/09/2019 at 13:18
== END ==
PROVIDERS: Family Provider Neurological Surgery; PCP Family Medicine; Visit Provider Family Medicine
DX: R13.10 Dysphagia, unspecified (principal); K44.9 Diaphragmatic hernia without obstruction or gangrene; K21.9 Gastro-esophageal reflux disease without esophagitis
CPT/HCPCS: 74246

== ENCOUNTER → 2019-09-16 14:42 | Outpatient (ROUT) | payer MEDICARE, OTHER, SELFPAY ==
[2019-09-16 14:45] LABS: Bacteria Urine None Seen; RBC Urine None Seen (0-5/HPF); WBC Urine None Seen (0-5/HPF)
[2019-09-16 14:49] LABS: Appearance Urine UA CLEAR; Bilirubin Urine UA NEGATIVE (NEGATIVE); Color Urine UA YELLOW; Glucose Urine UA NEGATIVE (Negative); Ketones Urine UA NEGATIVE (NEGATIVE); Leukocyte Esterase Urine UA TRACE (NEGATIVE); Nitrite Urine UA NEGATIVE (Negative); Occult Blood Urine UA NEGATIVE (Negative); Protein Urine UA NEGATIVE (Negative); Specific Gravity Urine UA 1.015 (1.000-1.035); Urobilinogen Urine UA 0.2 E.U./dL (0.2); pH Urine UA 5.5 (4.5-8.0)
[2019-09-16 14:52] LABS: Culture Indicated Urine Cult Not Indicated; Urine Comments Microscopic Normal
== END ==
PROVIDERS: Family Provider Neurological Surgery; PCP Family Medicine; Visit Provider Anesthesiology Pain Medicine
DX: N39.0 Urinary tract infection, site not specified (principal)
CPT/HCPCS: 81001

== ENCOUNTER → 2019-10-13 17:48 | Outpatient (CLI) | payer MEDICARE, OTHER, SELFPAY ==
--- NOTE | 2019-10-13 | DI.MRI.S_ITS ---
PROCEDURE: MR CERVICAL SPINE WO CON INDICATIONS: PAIN TECHNIQUE: Noncontrast sagittal T1 spin echo and T2 fast spin echo, sagittal STIR, foraminal oblique sagittal T2 fast spin echo, and axial gradient echo or T2 fast spin echo through the cervical spine. COMPARISON: [facility], CERVICAL SPINE 4 OR 5 VIEWS, 11/09/2014, 7:38. FINDINGS: Image quality: Excellent. Alignment and Curvature: There is trace C7-T1 anterolisthesis. Bone Marrow: Reactive endplate change is noted adjacent to the C4-C5, C5-C6, C6-C7 and C7-T1 discs. Spinal Cord: Visualized spinal cord has normal size and signal. No cerebellar tonsillar herniation. Paraspinous Soft Tissues: No paravertebral masses. Prevertebral soft tissues are normal in thickness. C2-C3: Loss of disc signal. Mild diffuse disc bulge. Mild right and moderate left facet hypertrophy. Mild narrowing of the central canal. Mild bilateral neural foraminal narrowing. No neural compression. C3-C4: Loss of disc signal. Mild, diffuse disc bulge. Moderate bilateral facet hypertrophy. Mild narrowing of the central canal. Moderate bilateral neural foraminal narrowing. No neural compression. C4-C5: Loss of disc signal and height. Mild, diffuse disc bulge. Anterior endplate osteophytosis. Mild bilateral facet hypertrophy. Mild bilateral uncovertebral joint hypertrophy. Mild narrowing of the central canal. Moderate right and [id number] left neural foraminal narrowing slight compression of the exiting left C5 nerve root. C5-C6: The loss of disc signal and height. Mild to moderate diffuse disc bulge. Anterior endplate osteophytosis. Mild bilateral facet hypertrophy. Moderate bilateral uncovertebral joint hypertrophy. Mild to moderate narrowing of the central canal. Severe bilateral neural foraminal narrowing with compression of the exiting bilateral C6 nerve roots. C6-C7: Loss of disc signal. Mild, diffuse disc bulge. Mild bilateral facet hypertrophy. Mild narrowing of the central canal. Mild bilateral neural foraminal narrowing. No neural compression. C7-T1: Loss of the signal. No central stenosis. No neural foraminal narrowing. No neural compression. IMPRESSION: 1. Multilevel degenerative disease. 2. Multilevel facet and uncovertebral arthropathy. 3. No significant central canal narrowing. 4. Severe bilateral C5-C6 neural foraminal narrowing with compression of the exiting bilateral C6 nerve roots. Moderate to severe left C4-C5 neuroforaminal narrowing with slight compression of the exiting left C5 nerve root. Dictated by: Rose Marie Sow MD, PhD on 10/14/2019 at 9:54 Approved by: Rose Marie Sow MD, PhD on 10/14/2019 at 12:09
--- NOTE | 2019-10-13 17:52 | DI.MRI.S_ITS ---
PROCEDURE: MR THORACIC SPINE WO CON INDICATIONS: LOW BACK PAIN TECHNIQUE: Noncontrast sagittal T1 spine echo and T2 fast spin echo, sagittal STIR, axial T1 and T2 fast spin echo through the thoracic spine. COMPARISON: None. FINDINGS: Image quality: Excellent. Alignment and Curvature: There is a trace L1-L2 anterolisthesis. Bone Marrow: Mild reactive endplate changes noted adjacent to the T1-T2 disc. No acute vertebral body compression fractures. Spinal Cord: Visualized spinal cord is normal in size and signal. Paraspinous Soft Tissues: No paravertebral masses. Miscellaneous: Mild to moderate T1-T2 degenerative disc disease with slight loss of disc height, loss of disc signal and anterior endplate osteophytosis. Mild degenerative changes noted throughout the remainder thoracic spine. On axial images, central canal and foramina appear widely patent at all scanned levels. IMPRESSION: 1. Multilevel degenerative disc disease. 2. No central stenosis. 3. No neural foraminal narrowing. 4. No neural compression. 5. No vertebral body compression fracture. Dictated by: Rose Marie Sow MD, PhD on 10/14/2019 at 9:43 Approved by: Rose Marie Sow MD, PhD on 10/14/2019 at 9:46
== END ==
PROVIDERS: Family Provider Neurological Surgery; PCP Family Medicine; Referring Provider Neurological Surgery; Visit Provider Neurological Surgery
DX: M54.5 Low back pain (principal); M51.34 Other intervertebral disc degeneration, thoracic region; M50.31 Other cervical disc degeneration, high cervical region; M47.812 Spondylosis without myelopathy or radiculopathy, cervical region; M48.02 Spinal stenosis, cervical region
CPT/HCPCS: 72141; 72146

== ENCOUNTER → 2019-11-18 17:29 | Outpatient (CLI) | payer MEDICARE, OTHER, SELFPAY ==
--- NOTE | 2019-11-18 | DI.MRI.S_ITS ---
PROCEDURE: MR LUMBAR SPINE WO CON INDICATIONS: LEG PAIN FOLLOWING SPINAL STIMULATOR TRIAL TECHNIQUE: Noncontrast sagittal T1 spin echo and T2 fast echo, coronal T2, sagittal STIR, axial T1 and T2 fast spin echo through the lumbar spine. COMPARISON: Outside Facility, RG, XR L-SPINE 2-3V, 10/03/2017, 15:11. [facility], CR, SPINE LUMB 2 OR 3VW, 12/14/2016, 10:38. [facility], MR, MR LUMBAR SPINE WO CON, 07/12/2018, 13:27. FINDINGS: Image quality: Excellent. Alignment and Curvature: Th 5 lumbar type vertebral bodies are present by plain film. Moderate rightward curvature of the upper lumbar spine. Loss of normal lumbar lordosis. Mild grade 1 retrolisthesis of L3 on L4. Mild grade 1 anterolisthesis of L5 on S1. Bone Marrow: Marrow is of normal overall signal. No acute vertebral body compression fractures. Mild reactive signal within the endplates adjacent to the L1-L2, L2-L3, L3-L4, L4-L5, and L5-S1 intervertebral discs. Spinal Cord: Conus medullaris terminates at the upper L2 level. Visualized cord demonstrates normal signal and size. Paraspinous Soft Tissues: No paravertebral masses. L1-L2: Mild disc height loss and desiccation. Mild diffuse disc bulge. Mild facet and ligamentum flavum hypertrophy. No significant canal, or foraminal stenosis. No change. L2-L3: Severe disc height loss and desiccation. Mild diffuse disc bulge. Mild facet and ligamentum flavum hypertrophy. Mild canal stenosis. Mild left greater than right foraminal stenosis. No change. L3-L4: Moderate disc height loss and desiccation. Mild diffuse disc bulge. Mild bilateral facet hypertrophy. Mild canal stenosis. Mild left greater than right foraminal stenosis. No change. L4-L5: Moderate disc height loss and desiccation. Mild diffuse disc bulge. Mild bilateral facet hypertrophy. Mild canal stenosis. Moderate right and mild left foraminal stenosis. L5-S1: Moderate disc desiccation and diffuse disc bulge. Mild bilateral facet hypertrophy. Mild canal stenosis. Moderate right and mild left foraminal stenosis. No change. IMPRESSION: 1. Multilevel degenerative disc and facet disease, as well as ligamentum flavum hypertrophy and epidural lipomatosis. 2. Mild multilevel canal stenosis. 3. Multilevel foraminal stenoses, worst at L4-L5 and L5-S1 where there are moderate foraminal stenosis as described above. Dictated by: Talha Garcia M.D. on 11/19/2019 at 9:20 Approved by: Talha Garcia M.D. on 11/19/2019 at 9:24
== END ==
PROVIDERS: Family Provider Neurological Surgery; PCP Family Medicine; Referring Provider Anesthesiology Pain Medicine; Visit Provider Anesthesiology Pain Medicine
DX: M54.5 Low back pain (principal); M79.609 Pain in unspecified limb; M51.36 Other intervertebral disc degeneration, lumbar region; M51.37 Other intervertebral disc degeneration, lumbosacral region; M48.061 Spinal stenosis, lumbar region without neurogenic claudication; M48.07 Spinal stenosis, lumbosacral region; E88.2 Lipomatosis, not elsewhere classified
CPT/HCPCS: 72148

== ENCOUNTER → 2020-05-21 08:08 | Outpatient (CLI) | payer MEDICARE, OTHER, SELFPAY ==
--- NOTE | 2020-05-21 | DI.MG.S_ITS ---
BILATERAL DIGITAL SCREENING MAMMOGRAM 3D/2D WITH CAD: 05/21/2020 CLINICAL: Routine screening. Family history of breast cancer. Comparison is made to exams dated: 04/16/2018 mammogram, 02/01/2017 mammogram, 01/31/2016 mammogram, and 01/15/2015 mammogram - [facility]. There are scattered fibroglandular elements in both breasts. Current study was also evaluated with a Computer Aided Detection (CAD) system. No significant masses, calcifications, or other findings are seen in either breast. There has been no significant interval change. IMPRESSION: NEGATIVE There is no mammographic evidence of malignancy. A 1 year screening mammogram is recommended. This exam was interpreted at Station ID: [id number]. NOTE: For mammograms, a report in lay terms will be sent to the patient. Approximately 15% of breast malignancies will not be visualized mammographically. In the management of a palpable breast mass, a negative mammogram must not discourage biopsy of a clinically suspicious lesion. Electronically Signed By: Nasir kidd/grupo:05/21/2020 13:25:23 letter sent: Normal Exam ACR BI-RADS Category 1: Negative [id number]
== END ==
PROVIDERS: Family Provider Neurological Surgery; PCP Family Medicine; Referring Provider Family Medicine; Visit Provider Family Medicine
DX: Z12.31 Encounter for screening mammogram for malignant neoplasm of breast (principal); Z80.3 Family history of malignant neoplasm of breast
CPT/HCPCS: 77063; 77067

== ENCOUNTER → 2020-06-18 09:10 | Outpatient (CLI) | payer MEDICARE, OTHER, SELFPAY ==
--- NOTE | 2020-06-18 09:13 | DI.RAD.S_ITS ---
PROCEDURE: XR ANKLE RT MIN 3V INDICATIONS: right ankle pain TECHNIQUE: 3 views of the ankle were acquired. COMPARISON: None. FINDINGS: Bones: Lateral malleolar fracture. There is associated articular surface incongruity. 2 mm chronic appearing osseous density projects adjacent to the lateral aspect of the talus. Soft tissues: Overlying lateral soft tissue swelling. IMPRESSION: Lateral malleolar fracture with adjacent soft tissue swelling Dictated by: Deonte Chapa M.D. on 06/18/2020 at 9:52 Approved by: Deonte Chapa M.D. on 06/18/2020 at 10:01
== END ==
PROVIDERS: Family Provider Neurological Surgery; PCP Family Medicine; Referring Provider Nurse Practitioner Family; Visit Provider Nurse Practitioner Family
DX: M25.571 Pain in right ankle and joints of right foot (principal); S82.61XA Displaced fracture of lateral malleolus of right fibula, initial encounter for closed fracture
CPT/HCPCS: 73610

== ENCOUNTER → 2020-07-15 09:07 | Outpatient (CLI) | payer MEDICARE, OTHER, SELFPAY ==
--- NOTE | 2020-07-15 | DI.RAD.S_ITS ---
PROCEDURE: XR ANKLE RT MIN 3V INDICATIONS: RIGH ANKLE PAIN TECHNIQUE: 3 views of the ankle were acquired. COMPARISON: [facility], CR, XR ANKLE RT MIN 3V, 06/18/2020, 9:13. FINDINGS: Bones: There is a mildly displaced oblique fracture involving the distal right fibula. Tibiotalar joint is maintained. Ankle mortise is normally aligned. No suspicious bony lesions. Soft tissues: No tibiotalar joint effusion. Achilles tendon appears normal. Soft tissue swelling overlying the lateral malleolus is present. IMPRESSION: Mildly displaced distal right fibular fracture. Ankle mortise is preserved. Dictated by: Isael Carlisle M.D. on 07/15/2020 at 10:43 Approved by: Isael Carlisle M.D. on 07/15/2020 at 10:46
== END ==
PROVIDERS: Family Provider Neurological Surgery; PCP Family Medicine; Referring Provider Nurse Practitioner Family; Visit Provider Nurse Practitioner Family
DX: S82.64XA Nondisplaced fracture of lateral malleolus of right fibula, initial encounter for closed fracture (principal)
CPT/HCPCS: 73610

== ENCOUNTER → 2020-07-28 14:19 | Outpatient (CLI) | payer MEDICARE, OTHER, SELFPAY ==
--- NOTE | 2020-07-28 | DI.CT.S_ITS ---
PROCEDURE: CT HEAD/BRAIN WO/W CON INDICATIONS: Other migraine, not intractable, without status mi TECHNIQUE: 4.5 mm thick angled axial sections acquired from the foramen magnum to the vertex both before and after the administration of intravenous contrast, with coronal and sagittal reformats. For radiation dose reduction, the following was used: automated exposure control, adjustment of mA and/or kV according to patient size. COMPARISON: [facility], CT, HEAD WITHOUT CONTRAST, 05/22/2007, 10:52. FINDINGS: Image quality: Excellent. CSF spaces: Basal cisterns are patent. No extra-axial fluid collections. Ventricles are symmetric in size and shape. Brain: No midline shift. No intracranial bleeds or masses. No abnormal intracranial enhancement. There is cerebral volume loss for age. There is periventricular white matter chronic small vessel ischemic change. There is intracranial internal carotid artery atherosclerosis. Skull and face: Calvarium and visualized facial bones appear intact, without suspicious lesions. Sinuses: Visualized sinuses and mastoids are clear. IMPRESSION: Unremarkable intracranial study for age, performed without and with contrast. No masses or abnormal enhancement can be seen. Dictated by: Haja Bradford M.D. on 07/28/2020 at 15:40 Approved by: Haja Bradford M.D. on 07/28/2020 at 15:40
[2020-07-28 14:44] LABS: BUN Creatinine Ratio 17.4 (6-22); Blood Urea Nitrogen 15 mg/dL (7-17); Estimated Glomerular Filt Rate > 60.0 mL/min (>60)
== END ==
PROVIDERS: Family Provider Neurological Surgery; PCP Family Medicine; Referring Provider Family Medicine; Visit Provider Family Medicine
DX: G43.809 Other migraine, not intractable, without status migrainosus (principal)
CPT/HCPCS: 36415; 70470; 82565; 84520; Q9967

== ENCOUNTER → 2020-10-21 13:14 | Outpatient (CLI) | payer MEDICARE, OTHER, SELFPAY ==
--- NOTE | 2020-10-21 | DI.US.S_ITS ---
PROCEDURE: US EXTREMITY NONVASC LOWER RT INDICATIONS: RIGHT THIGH MASS TECHNIQUE: Real-time scanning was performed of the anterior right thigh, with image documentation. COMPARISON: None. FINDINGS: Ultrasound evaluation in the distal anterior right thigh in the area of palpable abnormality demonstrates no subjacent discrete cystic or solid mass. IMPRESSION: 1. No discrete mass identified sonographically in the area palpable abnormality. Recommend clinical follow-up and if indicated further evaluation may be obtained with contrast enhanced MRI or CT. Dictated by: Oswaldo Thurston M.D. on 10/21/2020 at 17:20 Approved by: Oswaldo Thurston M.D. on 10/21/2020 at 17:22
== END ==
PROVIDERS: Family Provider Neurological Surgery; PCP Family Medicine; Referring Provider Family Medicine; Visit Provider Family Medicine
DX: R22.41 Localized swelling, mass and lump, right lower limb (principal)
CPT/HCPCS: 76882

== ENCOUNTER → 2021-01-20 10:03 | Outpatient (CLI) | payer MEDICARE, OTHER, SELFPAY ==
[2021-01-20 11:19] LABS: Influenza A - CEPHEID Flu A NEGATIVE (NEGATIVE); Influenza B - CEPHEID Flu B NEGATIVE (NEGATIVE)
[2021-01-20 11:29] LABS: COVID19 -Nasal RAPID Negative (Negative)
== END ==
PROVIDERS: Family Provider Neurological Surgery; PCP Family Medicine; Referring Provider Nurse Practitioner; Visit Provider Nurse Practitioner
DX: R05.9 Cough, unspecified (principal); R50.9 Fever, unspecified; Z20.822 Contact with and (suspected) exposure to COVID-19
CPT/HCPCS: 87502; 87635

== ENCOUNTER → 2021-01-20 10:55 | Outpatient (CLI) | payer MEDICARE, OTHER, SELFPAY ==
--- NOTE | 2021-01-20 10:57 | DI.RAD.S_ITS ---
PROCEDURE: XR CHEST 2V INDICATIONS: cough, r/o pneumonia, RLL TECHNIQUE: 2 views of the chest were acquired. COMPARISON: [facility], , CHEST 2 VIEW, 02/18/2015, 11:09. FINDINGS: Surgical changes and devices: Thoracic epidural nerve stimulator in place. Lungs and pleura: There is a consolidation in the right upper lobe thickening the minor fissure. The lungs are otherwise clear. There is mild chronic biapical pleural plaquing. Mediastinum: Mediastinal contours are normal. Heart size is normal. Bones and chest wall: No suspicious bony abnormalities. Soft tissues appear unremarkable. Chronic deformities of remote right rib fractures. IMPRESSION: 1. Right upper lobe consolidation, probably infection though neoplasm is not excluded. Recommend follow-up radiographs to resolution. 2. Interval placement of epidural thoracic nerve stimulator. Dictated by: Michelle Sandoval M.D. on 01/20/2021 at 11:07 Approved by: Michelle Sandoval M.D. on 01/20/2021 at 11:09
== END ==
PROVIDERS: Family Provider Neurological Surgery; PCP Family Medicine; Referring Provider Nurse Practitioner; Visit Provider Nurse Practitioner
DX: J18.1 Lobar pneumonia, unspecified organism (principal); R50.9 Fever, unspecified; R05.9 Cough, unspecified; R06.2 Wheezing; Z20.822 Contact with and (suspected) exposure to COVID-19
CPT/HCPCS: 71046; 87502; 87635

== ENCOUNTER 2021-01-24 16:47 | Emergency (ER) | payer MEDICARE, OTHER, SELFPAY ==
[2021-01-24] VITALS (9 sets, daily range): BP systolic 120–170; BP diastolic 57–81; PULSE 63–87; RESP 22; TEMP 36.6; O2SAT 96–100
--- NOTE | 2021-01-24 16:54 | DI.RAD.S_ITS ---
PROCEDURE: XR CHEST 2V INDICATIONS: fever/cough, repeat from 01/20 TECHNIQUE: 2 views of the chest were acquired. COMPARISON: [facility], CR, XR CHEST 2V, 01/20/2021, 10:52. FINDINGS: Surgical changes and devices: Spinal stimulator leads redemonstrated. Lungs and pleura: Very slight worsening of right upper lobe perifissural airspace disease. No pleural effusions or pneumothorax. Mediastinum: Mediastinal contours are normal. Heart size is normal. Bones and chest wall: No suspicious bony abnormalities. Soft tissues appear unremarkable. IMPRESSION: Very slight worsening of right upper lobe perifissural airspace disease. Dictated by: Cliff Treviño M.D. on 01/24/2021 at 17:20 Approved by: Cliff Treviño M.D. on 01/24/2021 at 17:22
--- NOTE | 2021-01-24 19:43 | ED_ITS ---
HPI - Fever <Samantha Latham PA-C - Last Filed: 01/24/21 20:24> General Chief Complaint: Fever Stated Complaint: HEADACHE,COUGH,FEVER Time Seen by Provider: 01/24/21 18:46 Source: patient Mode of arrival: Ambulatory History of Present Illness HPI Narrative: 70-year-old female with past medical history hypertension, hyp erlipidemia, osteopenia, obstructive sleep apnea presents to the ED with 10 days of fever, dry cough, headache. Patient states that she was seen on 01/20/2021 at Urgent Care, started on doxycycline for pneumonia. Patient was COVID-19 negative. Patient states that prior to starting the doxycycline she had a pain in the right mid back, which has improved since starting with doxycycline. However patient came into the ED since her other symptoms have not improved, namely the fevers, chills, headache. Patient endorses some mild shortness of breath which is unchanged over the last 10 days. Patient denies chest pain, nausea, vomiting, abdominal pain, flank pain, dysuria, lightheadedness, syncope. Related Data Home Medications Medication Instructions Recorded Confirmed ascorbic acid (vitamin C) 1,000 mg 500 mg PO BID #0 11/29/08 01/20/21 tablet (Vitamin C) citalopram 40 mg tablet 40 mg PO DAILY #0 11/29/08 01/20/21 simvastatin 20 mg tablet (Zocor) 20 mg PO BEDTIME #0 11/29/08 01/20/21 zinc/mag/vit d PO DAILY 02/11/19 01/20/21 [id number]-aklekj-fhe-lia-idl-euxm-horse 1 tab PO DAILY 03/14/19 01/20/21 100 mg-100 mg-100 mg-125 mg tab (Tumersaid) baclofen 10 mg tablet 10 mg PO TID PRN 05/13/20 01/20/21 metoprolol succinate 25 mg 25 mg PO TID-QID tab 05/13/20 01/20/21 tablet,extended release 24 hr tramadol 50 mg tablet 50 mg PO TID PRN tab 05/13/20 01/20/21 Previous Rx's Medication Instructions Recorded doxycycline hyclate 100 mg capsule 100 mg PO BID 7 Days #14 cap 01/20/21 benzonatate 100 mg capsule 100 mg PO BID-TID PRN #20 cap 01/24/21 (Siobhan Cosme) Allergies Allergy/AdvReac Type Severity Reaction Status Date / Time No Known Drug Allergies Allergy Verified 01/20/21 10:07 Review of Systems <Samantha Latham PA-C - Last Filed: 01/24/21 20:24> Constitutional Constitutional: Reports chills, Denies fatigue, Reports fever(s), Denies frequent falls, Reports headache(s), Denies lethargy and Denies weakness Eyes Eyes: Denies change in vision, Denies eye discharge, Denies irritation and Denies loss of vision ENT Ears, Nose, Mouth, and Throat: Denies change in voice, Denies dizziness, Reports headache(s), Denies neck pain, Denies sore throat and Denies throat swelling Cardiovascular Cardiovascular: Denies chest pain, Denies irregular heart rhythm, Denies lightheadedness, Denies palpitations, Denies dyspnea, Denies dyspnea on exertion and Denies orthopnea Respiratory Respiratory: Reports cough (Dry cough), Denies dyspnea, Denies dyspnea on exertion and Denies wheezing Gastrointestinal Gastrointestinal: Denies abdominal pain, Denies change in bowel habits, Denies diarrhea, Denies nausea and Denies vomiting Musculoskeletal Musculoskeletal: Denies neck pain and Denies numbness Integumentary/Breasts Skin/Breast: Denies pruritus, Denies erythema, Denies rash and Denies wounds Neurologic Neurologic: Denies behavioral changes, Denies confusion, Denies dizziness, Denies frequent falls, Reports headache(s), Denies loss of vision, Denies numbness and Denies weakness Psychiatric Psychiatric: Denies anxiety, Denies behavioral changes, Denies confusion, Denies depression, Denies homicidal ideation and Denies suicidal ideation Endocrine Endocrine: Denies fatigue, Denies flushing and Denies palpitations Hematologic/Lymphatic Hematologic/Lymphatic: Denies easy bruising Allergic/Immunologic Allergic/Immunologic: Denies urticaria, Denies throat swelling and Denies wheezing Patient History <Samantha Latham PA-C - Last Filed: 01/24/21 20:24> Medical History Carpal tunnel syndrome, right Chronic pain Foraminal stenosis of lumbar region Foraminal stenosis of lumbosacral region Hyperlipidemia Hypertension Obstructive sleep apnea of adult Osteoarthritis Surgical History H/O arthroscopic knee surgery S/P insertion of spinal cord stimulator Status post carpal tunnel release Family History Mother Lung cancer Liver cancer Father Heart disease Cancer of heart Myocardial infarct Social History marital status: household members: spouse Smoking Status: Former smoker alcohol intake: current Type(s) of exercise: walking Smoking Status: Former smoker Exam <Samantha Latham PA-C - Last Filed: 01/24/21 20:24> Initial Vital Signs Initial Vital Signs: Vital Signs Temperature 97.9 F 01/24/21 16:51 Pulse Rate 80 01/24/21 16:51 Respiratory Rate 22 01/24/21 16:51 Blood Pressure 133/62 01/24/21 16:51 Pulse Oximetry 99 01/24/21 16:51 Const General: cooperative HENMT Head: normocephalic and atraumatic Ears: external ears normal and TM's normal bilaterally Nose: external nose normal and No nasal discharge Face and sinus: sinuses nontender, face symmetric, no sinus tenderness and No dry mucous membranes Mouth: oral mucosae normal and moist mucous membranes Teeth and gingiva: dentition normal Throat: tonsils normal and uvula midline Eyes General: appearance normal, both eyes and all related structures Eyelids: eyelids normal Conjunctivae: conjunctivae normal Sclera: sclerae normal Pupils: PERRL EOM: EOM intact bilaterally Neck Neck: normal visual inspection, trachea midline, No lymphadenopathy, No midline deformity and No JVD Lymphatic: No lymphedema Chest Chest: normal inspection of the chest Resp Effort & Inspection: normal respiratory effort, able to speak in complete s entences, no respiratory distress and no use of accessory muscles Auscultation: clear to auscultation bilaterally, no rales, no rhonchi and no wheezes Cardio Rate: regular rate Rhythm: regular rhythm Heart Sounds: no click, no gallops, no murmurs and no rubs Pulses: normal peripheral pulses GI Inspection: non-distended Palpation: soft, no hepatosplenomegaly, No guarding, No pulsatile mass and No tender Auscultation: normal bowel sounds Back/Spine/Pelvis Back: No CVA tenderness Cervical Spine: cervical ROM normal and No pain with cervical ROM Thoracic/Lumbar Spine: thoracic and lumbar spine normal to inspection Skin General: no rashes or lesions noted, No jaundice and No petechiae Neuro General: patient alert, patient oriented x3, gait normal and no focal motor deficits Speech: speech normal Extrem General: full ROM, no clubbing, cyanosis or edema, no pedal edema and no calf tenderness Psych Appearance: well kempt Mental Status: mental status grossly normal Attitude: cooperative Thought Content: normal and suicidality Judgment: judgment good <Yari Hodges MD - Last Filed: 01/24/21 22:08> Initial Vital Signs Initial Vital Signs: Vital Signs Temperature 97.9 F 01/24/21 16:51 Pulse Rate 80 01/24/21 16:51 Respiratory Rate 22 01/24/21 16:51 Blood Pressure 133/62 01/24/21 16:51 Pulse Oximetry 99 01/24/21 16:51 Course <Samantha Latham PA-C - Last Filed: 01/24/21 20:24> Orders Ordered: ED Orders 01/24/21 16:51 COVID19 -Nasal swab/Pre-Proc Stat 01/24/21 16:54 Chest [XR chest 2V] Stat 01/24/21 19:32 Complete Blood Count AUTO DIFF Stat Comprehensive Metabolic Panel Stat Procalcitonin Stat 01/24/21 19:51 CT angio chest PE protocol Stat 01/24/21 19:56 EKG-12 Lead Stat Discontinued Medications Acetaminophen (Acetaminophen 325 Mg Tablet) 975 mg PO NOW ONE Stop: 01/24/21 21:32 Last Admin: 01/24/21 21:35 Dose: 975 mg Documented by: Benzonatate (Benzonatate 100 Mg Capsule) 100 mg PO NOW ONE Stop: 01/24/21 21:53 Last Admin: 01/24/21 22:02 Dose: 100 mg Documented by: Vital Signs Vital signs: Vital Signs - 8 hr 01/24/21 16:51 01/24/21 19:46 01/24/21 20:00 Temperature 97.9 F Pulse Rate 80 63 66 Respiratory Rate 22 Blood Pressure 133/62 Pulse Oximetry 99 97 96 01/24/21 20:24 Temperature Pulse Rate 71 Respiratory Rate Blood Pressure 120/57 L Pulse Oximetry 98 <Yari Hodges MD - Last Filed: 01/24/21 22:08> Orders Ordered: ED Orders 01/24/21 16:51 COVID19 -Nasal swab/Pre-Proc Stat 01/24/21 16:54 Chest [XR chest 2V] Stat 01/24/21 19:32 Complete Blood Count AUTO DIFF Stat Comprehensive Metabolic Panel Stat Procalcitonin Stat 01/24/21 19:51 CT angio chest PE protocol Stat 01/24/21 19:56 EKG-12 Lead Stat Discontinued Medications Acetaminophen (Acetaminophen 325 Mg Tablet) 975 mg PO NOW ONE Stop: 01/24/21 21:32 Last Admin: 01/24/21 21:35 Dose: 975 mg Documented by: Benzonatate (Benzonatate 100 Mg Capsule) 100 mg PO NOW ONE Stop: 01/24/21 21:53 Last Admin: 01/24/21 22:02 Dose: 100 mg Documented by: Vital Signs Vital signs: Vital Signs - 8 hr 01/24/21 16:51 01/24/21 19:46 01/24/21 20:00 Temperature 97.9 F Pulse Rate 80 63 66 Respiratory Rate 22 Blood Pressure 133/62 Pulse Oximetry 99 97 96 01/24/21 20:24 Temperature Pulse Rate 71 Respiratory Rate Blood Pressure 120/57 L Pulse Oximetry 98 MDM - Fever <Samantha Latham PA-C - Last Filed: 01/24/21 20:24> Lab Data Result diagrams: 01/24/21 19:32 01/24/21 19:32 Labs: Lab Results 01/24/21 01/24/21 01/24/21 Range/Units 19:32 19:32 19:32 WBC 15.4 H (4.5-11.0) X10^3/uL RBC 4.32 (4.0-5.2) X10^6/uL Hgb 12.4 (12.0-16.0) g/dL Hct 37.3 (36-46) % MCV 86.2 (80-100) fL MCH 28.6 (26-34) PG MCHC 33.1 (30-36) % RDW 12.9 (11.6-14.8) % Plt Count 375 (150-400) X10^3/uL Neut % (Auto) 76.2 H (50-75) % Lymph % (Auto) 16.5 L (25-40) % [place] % (Auto) 5.7 (3-14) % Eos % (Auto) 0.3 L (2-4) % Baso % (Auto) 1.3 (0-2) % Neut # (Auto) 01845 H (9172-4236) /uL Lymph # (Auto) 2600 (0354-1409) /uL [place] # (Auto) 900 (0-900) /uL Eos # (Auto) 100 (0-450) /uL Baso # (Auto) 200 H (0-100) /uL Sodium 137 (137-145) mmol/L Potassium 4.1 (3.4-5.1) mmol/L Chloride 100 (98-107) mmol/L Carbon Dioxide 32 (22-32) mmol/L BUN 11 (7-17) mg/dL Creatinine 0.70 (0.52-1.04) mg/dL Estimated GFR > 60.0 (>60) mL/min BUN/Creatinine Ratio 15.7 (6-22) Glucose 108 (80-110) mg/dL Calcium 9.3 (8.4-10.2) mg/dL Total Bilirubin 0.3 (0.2-1.3) mg/dL AST 23 (14-36) IU/L ALT 17 (<35) IU/L Alkaline Phosphatase 102 (38-126) U/L Total Protein 7.8 (6.3-8.2) g/dL Albumin 4.3 (3.5-5.0) g/dL Globulin 3.5 (1.7-4.1) g/dL Albumin/Globulin Ratio 1.2 (1.0-2.8) Procalcitonin 0.08 (<0.5) ng/mL Imaging Data Chest x-ray: Radiologist's Impression: PROCEDURE:? XR CHEST 2V ? INDICATIONS:? fever/cough, repeat from 01/20 ? TECHNIQUE:? 2 views of the chest were acquired.? ? COMPARISON:? [facility], CR, XR CHEST 2V, 01/20/2021, 10:52. ? FINDINGS:? ? Surgical changes and devices:? Spinal stimulator leads redemonstrated. ? Lungs and pleura:? Very slight worsening of right upper lobe perifissural airspace disease.? No pleural effusions or pneumothorax.? ? Mediastinum:? Mediastinal contours are normal.? Heart size is normal.? ? Bones and chest wall:? No suspicious bony abnormalities.? Soft tissues appear unremarkable.? ? IMPRESSION:? Very slight worsening of right upper lobe perifissural airspace disease.? ? ? Dictated by: Cliff Treviño M.D. on 01/24/2021 at 17:20 ? ? Approved by: Cliff Treviño M.D. on 01/24/2021 at 17:22 ? MDM Narrative Medical decision making narrative: 70-year-old female with past medical history hypertension, hyperlipidemia, osteopenia, obstructive sleep apnea presents to the ED with 10 days of fever, dry cough, headache. Patient's physical exam is reassuring. However the chest x-ray from 01/20/2021 was read as either a pulmonary infiltrate versus neoplasm. Concern for pneumonia versus neoplasm versus UTI vs PE. Will order EKG, labs, procalcitonin, CT PE. <Yari Hodges MD - Last Filed: 01/24/21 22:08> Lab Data Labs: Lab Results 01/24/21 01/24/21 01/24/21 Range/Units 19:32 19:32 19:32 WBC 15.4 H (4.5-11.0) X10^3/uL RBC 4.32 (4.0-5.2) X10^6/uL Hgb 12.4 (12.0-16.0) g/dL Hct 37.3 (36-46) % MCV 86.2 (80-100) fL MCH 28.6 (26-34) PG MCHC 33.1 (30-36) % RDW 12.9 (11.6-14.8) % Plt Count 375 (150-400) X10^3/uL Neut % (Auto) 76.2 H (50-75) % Lymph % (Auto) 16.5 L (25-40) % [place] % (Auto) 5.7 (3-14) % Eos % (Auto) 0.3 L (2-4) % Baso % (Auto) 1.3 (0-2) % Neut # (Auto) 81284 H (4061-3232) /uL Lymph # (Auto) 2600 (8311-6514) /uL [place] # (Auto) 900 (0-900) /uL Eos # (Auto) 100 (0-450) /uL Baso # (Auto) 200 H (0-100) /uL Sodium 137 (137-145) mmol/L Potassium 4.1 (3.4-5.1) mmol/L Chloride 100 (98-107) mmol/L Carbon Dioxide 32 (22-32) mmol/L BUN 11 (7-17) mg/dL Creatinine 0.70 (0.52-1.04) mg/dL Estimated GFR > 60.0 (>60) mL/min BUN/Creatinine Ratio 15.7 (6-22) Glucose 108 (80-110) mg/dL Calcium 9.3 (8.4-10.2) mg/dL Total Bilirubin 0.3 (0.2-1.3) mg/dL AST 23 (14-36) IU/L ALT 17 (<35) IU/L Alkaline Phosphatase 102 (38-126) U/L Total Protein 7.8 (6.3-8.2) g/dL Albumin 4.3 (3.5-5.0) g/dL Globulin 3.5 (1.7-4.1) g/dL Albumin/Globulin Ratio 1.2 (1.0-2.8) Procalcitonin 0.08 (<0.5) ng/mL Imaging Data CT scan - chest: Radiologist's Impression: FINDINGS:? Image quality:? Excellent.? ? Pulmonary arteries:? Pulmonary arteries are normal in size, and demonstrate no intraluminal filling defects to suggest central pulmonary embolism.? ? Lungs and pleura:? Right upper lobe mass measuring approximately 4 centimeters which encases a few right upper lobe airways and small vascular branches.? Interlobular septal thickening adjacent to the mass is nonspecific, potentially representing a component of edema or infection, although lymphangitic carcinomatosis could cause a similar appearance.? Few tiny nodules in the right upper lobe are nonspecific, potentially representing tree-in-bud nodularity secondary to obstruction and infection, versus satellite malignant nodules. ? Mediastinum:? Asymmetrically enlarged right hilar and paratracheal/precarinal lymph nodes are suspicious for metastatic disease. ? Bones and chest wall:? No acute or suspicious osseous lesion.? No threshold enlarged axillary or supraclavicular lymph node. ? Abdomen:? Visualized upper abdominal solid organs appear normal in the early arterial phase of enhancement.? ? IMPRESSION:? ? 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 ? Interlobular septal thickening and small nodules in the right upper lobe adjacent to the mass are nonspecific, potentially infectious although lymphangitic carcinomatosis and satellite malignant nodules are of concern also.? ? ? Dictated by: Cliff Treviño M.D. on 01/24/2021 at 20:59? ?? ECG Data Interpretation: Sinus rhythm at a rate of 70 Normal axis, prolonged QTc at 492 milliseconds No acute ischemic changes MDM Narrative Medical decision making narrative: 70-year-old female with past medical history hypertension, hyperlipidemia, osteopenia, obstructive sleep apnea presents to the ED with 10 days of fever, dry cough, headache. Patient's physical exam is reassuring. However the chest x-ray from 01/20/2021 was read as either a pulmonary infiltrate versus neoplasm. Concern for pneumonia versus neoplasm versus UTI vs PE. Will order EKG, labs, procalcitonin, CT PE. Care is assumed. CTA is reviewed. No evidence of pneumonia or pulmonary embolism. She does have of malignant-appearing right upper lobe mass measuring up to 4 cm with hilar and mediastinal metastatic adenopathy. Findings are reviewed with patient. Will have her complete her course of doxycycline and not change antibiotics at this point. Her primary care physician is Dr. Mcclain. Will contact his covering physician this evening to let them know about the concerning findings on CT scan and begin helping with oncology consultations etc. tomorrow. Spoke with Dr Kaufman at 10:00pm Discharge Plan Departure Patient Disposition: Home Clinical Impression: Mass of right lung Instructions: DI for Lung Cancer Activity Restrictions/Additional Instructions: Thank you for coming in today Unfortunately, that feeling that something more is wrong was proved to be true with your CT scan today. You do have a 4 cm mass in the middle of your right lung that needs further evaluation. We can never make the actual diagnosis of cancer until we actually have tissue to look at under the microscope however this is certainly very suspicious. I will speak with your primary care doctor this evening to let them know that care coordination will need to begin tomorrow to confirm a diagnosis and insure that you have appropriate follow-up. Please expect a call from their office In the meantime, you can try using Symetis to help with the cough. A prescription was electronically transmitted to [facility] in [place] I wish you the best Prescriptions: New benzonatate [Tessalon Perles] 100 mg capsule 100 mg PO BID-TID PRN (Reason: cough) Qty: 20 RF: 0 No Action doxycycline hyclate 100 mg capsule 100 mg PO BID 7 Days Qty: 14 RF: 0 ascorbic acid (vitamin C) [Vitamin C] 1,000 mg Tablet 500 mg PO BID Qty: 0 RF: 0 citalopram 40 mg Tablet 40 mg PO DAILY Qty: 0 RF: 0 simvastatin [Zocor] 20 mg Tablet 20 mg PO BEDTIME Qty: 0 RF: 0 [place] [phone] mg Tablet 1 tab PO DAILY RF: 0 metoprolol succinate 25 mg tablet extended release 24 hr 25 mg PO TID-QID RF: 0 zinc/mag/vit d PO DAILY RF: 0 baclofen 10 mg tablet 10 mg PO TID PRNRF: 0 tramadol 50 mg tablet 50 mg PO TID PRN (Reason: pain) RF: 0 Referrals: Anil Mcclain MD [Primary Care Provider] -
[2021-01-24 19:44] LABS: Add Manual Diff / Slide Review NO; Basophils Absolute Auto 200 /uL (0-100); Basophils Percent Auto 1.3 % (0-2); Eosinophils Absolute Auto 100 /uL (0-450); Eosinophils Percent Auto 0.3 % (2-4); Hematocrit 37.3 % (36-46); Hemoglobin 12.4 g/dL (12.0-16.0); Lymphocytes Absolute Auto 2600 /uL (1100-4500); Lymphocytes Percent Auto 16.5 % (25-40); Mean Corpuscular HGB Conc 33.1 % (30-36); Mean Corpuscular Hemoglobin 28.6 PG (26-34); Mean Corpuscular Volume 86.2 fL (80-100); Monocytes Absolute Auto 900 /uL (0-900); Monocytes Percent Auto 5.7 % (3-14); Neutrophils Absolute Auto 11800 /uL (1500-7000); Neutrophils Percent Auto 76.2 % (50-75); Platelet Count 375 X10^3/uL (150-400); Red Blood Cell Count 4.32 X10^6/uL (4.0-5.2); Red Cell Distribution Width 12.9 % (11.6-14.8); White Blood Cell Count 15.4 X10^3/uL (4.5-11.0)
--- NOTE | 2021-01-24 19:51 | DI.CT.S_ITS ---
PROCEDURE: CT ANGIO CHEST PE PROTOCOL INDICATIONS: ? PE vs neoplasm vs PNA TECHNIQUE: After the administration of intravenous contrast, 2 mm thick sections acquired from the pulmonary apices to the posterior costophrenic angles. 3-dimensional maximum intensity projection (MIP) coronal and sagittal reformats were then acquired through the thorax. For radiation dose reduction, the following was used: automated exposure control, adjustment of mA and/or kV according to patient size. COMPARISON: None. FINDINGS: Image quality: Excellent. Pulmonary arteries: Pulmonary arteries are normal in size, and demonstrate no intraluminal filling defects to suggest central pulmonary embolism. Lungs and pleura: Right upper lobe mass measuring approximately 4 centimeters which encases a few right upper lobe airways and small vascular branches. Interlobular septal thickening adjacent to the mass is nonspecific, potentially representing a component of edema or infection, although lymphangitic carcinomatosis could cause a similar appearance. Few tiny nodules in the right upper lobe are nonspecific, potentially representing tree-in-bud nodularity secondary to obstruction and infection, versus satellite malignant nodules. Mediastinum: Asymmetrically enlarged right hilar and paratracheal/precarinal lymph nodes are suspicious for metastatic disease. Bones and chest wall: No acute or suspicious osseous lesion. No threshold enlarged axillary or supraclavicular lymph node. Abdomen: Visualized upper abdominal solid organs appear normal in the early arterial phase of enhancement. IMPRESSION: Malignant appearing right upper lobe mass measuring up to 4 centimeters, with probable right hilar and mediastinal metastatic lymphadenopathy. Interlobular septal thickening and small nodules in the right upper lobe adjacent to the mass are nonspecific, potentially infectious although lymphangitic carcinomatosis and satellite malignant nodules are of concern also. Dictated by: Cliff Treviño M.D. on 01/24/2021 at 20:59 Approved by: Cliff Treviño M.D. on 01/24/2021 at 21:03
[2021-01-24 20:02] LABS: Alanine Aminotransferase 17 IU/L (<35); Albumin 4.3 g/dL (3.5-5.0); Albumin Globulin Ratio 1.2 (1.0-2.8); Alkaline Phosphatase 102 U/L (38-126); Aspartate Aminotransferase 23 IU/L (14-36); BUN Creatinine Ratio 15.7 (6-22); Bilirubin Total 0.3 mg/dL (0.2-1.3); Blood Urea Nitrogen 11 mg/dL (7-17); Calcium 9.3 mg/dL (8.4-10.2); Carbon Dioxide 32 mmol/L (22-32); Chloride 100 mmol/L (98-107); Estimated Glomerular Filt Rate > 60.0 mL/min (>60); Globulin 3.5 g/dL (1.7-4.1); Glucose 108 mg/dL (80-110); HEMOLYSIS < 15 (0-50); Potassium 4.1 mmol/L (3.4-5.1); Sodium 137 mmol/L (137-145); Total Protein 7.8 g/dL (6.3-8.2)
[2021-01-24 20:19] LABS: Procalcitonin 0.08 ng/mL (<0.5)
[2021-01-24] MEDS: ACETAMINOPHEN 325 MG TABLET 975 MG PO (21:35)
--- NOTE | 2021-01-24 21:43 | PC.NURSE ---
Dr Hodges at bedside, discussing CT results. Patient requests for provider to call her to discuss results.
[2021-01-24] MEDS: BENZONATATE 100 MG CAPSULE PO (22:02)
== END 2021-01-24 22:20 | disposition home or self-care (01) ==
PROVIDERS: Student in an Organized Health Care Education/Training Program; Emergency Provider Emergency Medicine; Family Provider Neurological Surgery; PCP Family Medicine
DX: R91.8 Other nonspecific abnormal finding of lung field (principal); R05.9 Cough, unspecified; I10 Essential (primary) hypertension; Z87.891 Personal history of nicotine dependence
CPT/HCPCS: 36415; 71046; 71275; 80053; 84145; 85025; 93005; 93010; 99284; Q9967

== ENCOUNTER → 2021-02-08 09:39 | Outpatient (CLI) | payer MEDICARE, OTHER, SELFPAY ==
--- NOTE | 2021-02-08 09:43 | DI.CT.S_ITS ---
PROCEDURE: CT CHEST WO CON INDICATIONS: Other nonspecific abnormal finding of lung field TECHNIQUE: Noncontrast 5 mm thick sections acquired from the pulmonary apices to the posterior costophrenic angles. 1 mm lung window, 5 mm thick coronal and sagittal and 7 mm axial MIP reformats were then acquired. For radiation dose reduction, the following was used: automated exposure control, adjustment of mA and/or kV according to patient size. COMPARISON: [facility], CT, CT ANGIO CHEST PE PROTOCOL, 01/24/2021, 20:28. FINDINGS: Lungs: Redemonstrated of ill-defined spiculated mass measuring 1.9 x 3.2 cm seen involving the right upper lobe, with central lucency raising possibility of internal cavitation. This is decreased in size since the prior study dated 01/24/21 (4.7 x 3.3 cm) and suggests infectious or inflammatory etiology. There is also decrease in the thickening appearance of the interlobular septal lines in this area. Airway thickening in keeping with nonspecific bronchitis and/or reactive airways disease. No new focal consolidation identified. Pleura: No pleural effusion or pneumothorax. Heart: Normal in size. Trace anterior pericardial fluid or thickening. Moderate coronary artery calcifications. Chest nodes: No definite pathologically enlarged lymphadenopathy. Thyroid gland: Unremarkable Aorta: Normal in size. Pulmonary arteries: Normal. Esophagus: Trace hiatal hernia. Upper abdomen and chest wall: No significant findings. Bones: No compression fracture. Diffuse spondylitic changes and facet arthropathy. Incidentally noted spinal electrodes. IMPRESSION: Interval decrease in ill-defined masslike consolidation involving the right upper lobe (with central lucency/cavitation) since the prior study dated 01/24/21 as above. This suggests resolving infectious or inflammatory etiology. Recommend clinical correlation. Recommend continued short interval CT follow-up to document resolution and exclude underlying neoplasm, as well as developing abscess. Dictated by: Deonte Chapa M.D. on 02/08/2021 at 10:25 Approved by: Deonte Chapa M.D. on 02/08/2021 at 10:32
== END ==
PROVIDERS: Family Provider Neurological Surgery; PCP Family Medicine; Referring Provider Family Medicine; Visit Provider Family Medicine
DX: R91.8 Other nonspecific abnormal finding of lung field (principal)
CPT/HCPCS: 71250

== ENCOUNTER → 2021-03-10 10:31 | Outpatient (CLI) | payer MEDICARE, OTHER, SELFPAY ==
--- NOTE | 2021-03-10 12:33 | DI.CT.S_ITS ---
PROCEDURE: CT CHEST WO CON INDICATIONS: Other nonspecific abnormal finding of lung field TECHNIQUE: Noncontrast 5 mm thick sections acquired from the pulmonary apices to the posterior costophrenic angles. 1 mm lung window, 5 mm thick coronal and sagittal and 7 mm axial MIP reformats were then acquired. For radiation dose reduction, the following was used: automated exposure control, adjustment of mA and/or kV according to patient size. COMPARISON: [facility], CT, CT CHEST WO CON, 02/08/2021, 9:46. FINDINGS: Image quality: Excellent. Lungs and pleura: Redemonstrated 3 x 1.5 cm spiculated density (series 3, image 109); previously measuring 3.2 x 2 cm. No pleural effusions or pneumothorax. Central and peripheral airways are patent and normal in caliber. Mediastinum: Heart size is normal. Trace pericardial effusion/thickening. No mediastinal adenopathy by size criteria. Thoracic aorta and central pulmonary arteries are normal in size. Esophagus is normal in caliber. Small hiatal hernia. Bones and chest wall: No suspicious bony lesions. No vertebral body compression fractures. Multifocal degenerative change. No axillary or supraclavicular adenopathy by size criteria. Thyroid gland is homogeneous . Abdomen: Visualized upper abdominal solid organs and bowel loops appear normal in the absence of contrast. IMPRESSION: 1. Interval decrease in the previously demonstrated mass-like consolidation in the right upper lobe abutting the fissure, which may reflect a resolving infectious/inflammatory process. Consider CT follow-up until resolution. Dictated by: Curtis Ricks M.D. on 03/10/2021 at 12:43 Approved by: Curtsi Ricks M.D. on 03/10/2021 at 12:51
== END ==
PROVIDERS: Family Provider Neurological Surgery; PCP Family Medicine; Referring Provider Family Medicine; Visit Provider Family Medicine
DX: R91.8 Other nonspecific abnormal finding of lung field (principal); K44.9 Diaphragmatic hernia without obstruction or gangrene
CPT/HCPCS: 71250

== ENCOUNTER → 2021-04-19 09:06 | Outpatient (CLI) | payer MEDICARE, OTHER, SELFPAY ==
--- NOTE | 2021-04-19 09:08 | DI.CT.S_ITS ---
PROCEDURE: CT CHEST WO CON INDICATIONS: Other nonspecific abnormal finding of lung field TECHNIQUE: Noncontrast 5 mm thick sections acquired from the pulmonary apices to the posterior costophrenic angles. 1 mm lung window, 5 mm thick coronal and sagittal and 7 mm axial MIP reformats were then acquired. For radiation dose reduction, the following was used: automated exposure control, adjustment of mA and/or kV according to patient size. COMPARISON: [facility], CT, CT CHEST WO CON, 03/10/2021, 10:41. FINDINGS: Image quality: Excellent. Lungs and pleura: Redemonstrated spiculated density in the right upper lobe, abutting the horizontal fissure; measuring approximately 1.3 cm in greatest dimension (3-108), decreased compared to the prior study, measuring up to 3 cm. No consolidation, pleural effusions or pneumothorax. Central and peripheral airways are patent and normal in caliber. Mediastinum: Heart size is normal. Trace pericardial effusion/thickening. Coronary artery calcifications. No mediastinal adenopathy by size criteria. Thoracic aorta and central pulmonary arteries are normal in size. Esophagus is normal in caliber. Small hiatal hernia. Bones and chest wall: No suspicious bony lesions. No vertebral body compression fractures. No axillary or supraclavicular adenopathy by size criteria. Thyroid gland demonstrates homogeneous attenuation. Abdomen: Visualized upper abdominal solid organs and bowel loops appear normal in the absence of contrast. IMPRESSION: Continued decreased size of the previously demonstrated mass-like consolidation abutting the horizontal fissure, compatible with a resolving infectious/inflammatory process. Consider CT follow-up until resolution. Dictated by: Curtis Ricks M.D. on 04/19/2021 at 10:06 Approved by: Curtis Ricks M.D. on 04/19/2021 at 10:16
== END ==
PROVIDERS: Family Provider Neurological Surgery; PCP Family Medicine; Referring Provider Family Medicine; Visit Provider Family Medicine
DX: R91.8 Other nonspecific abnormal finding of lung field (principal); K44.9 Diaphragmatic hernia without obstruction or gangrene
CPT/HCPCS: 71250

== ENCOUNTER → 2021-05-31 09:50 | Outpatient (CLI) | payer MEDICARE, OTHER, SELFPAY ==
--- NOTE | 2021-05-31 | DI.CT.S_ITS ---
PROCEDURE: CT CHEST WO CON INDICATIONS: other unspecified abnormal findings of lung field TECHNIQUE: Noncontrast 5 mm thick sections acquired from the pulmonary apices to the posterior costophrenic angles. 1 mm lung window, 5 mm thick coronal and sagittal and 7 mm axial MIP reformats were then acquired. For radiation dose reduction, the following was used: automated exposure control, adjustment of mA and/or kV according to patient size. COMPARISON: [facility], CT, CT CHEST WO CON, 03/10/2021, 10:41. [facility], CT, CT ANGIO CHEST PE PROTOCOL, 01/24/2021, 20:28. [facility], CT, CT CHEST WO CON, 04/19/2021, 9:18. FINDINGS: Image quality: Excellent. Lungs and pleura: Minimal linear scarring noted in the right lower lobe abutting the minor fissure measuring 1.3 by 0.3 cm on image 5/32, stable from the prior. No new nodule or adenopathy present. Pleural spaces are clear. Mediastinum: Heart size is normal. Coronary artery and aortic vascular calcification noted. No pericardial effusion. No mediastinal adenopathy by size criteria. Thoracic aorta and central pulmonary arteries are normal in size. Esophagus is normal in caliber. No hiatal hernia. Bones and chest wall: No suspicious bony lesions. No vertebral body compression fractures. No axillary or supraclavicular adenopathy by size criteria. Thyroid gland unremarkable . Epidural stimulator remains unchanged Abdomen: Visualized upper abdominal solid organs and bowel loops appear normal in the absence of contrast. IMPRESSION: 1. Trace residual scarring in the right upper lobe remains unchanged from the prior exam. Approved by: Roly Ward M.D. on 05/31/2021 at 10:37
== END ==
PROVIDERS: Family Provider Neurological Surgery; PCP Family Medicine; Referring Provider Internal Medicine; Visit Provider Family Medicine
DX: R91.8 Other nonspecific abnormal finding of lung field (principal)
CPT/HCPCS: 71250

== ENCOUNTER → 2021-07-12 13:11 | Outpatient (CLI) | payer MEDICARE, OTHER, SELFPAY ==
--- NOTE | 2021-07-12 | DI.CT.S_ITS ---
PROCEDURE: CT CHEST WO CON INDICATIONS: Other nonspecific abnormal finding of lung field TECHNIQUE: Noncontrast 5 mm thick sections acquired from the pulmonary apices to the posterior costophrenic angles. 1 mm lung window, 5 mm thick coronal and sagittal and 7 mm axial MIP reformats were then acquired. For radiation dose reduction, the following was used: automated exposure control, adjustment of mA and/or kV according to patient size. COMPARISON: [facility], CT, CT CHEST WO CON, 05/31/2021, 10:02. FINDINGS: Image quality: Excellent. Lungs and pleura: No acute air space opacities. Previously described linear scarring is not appreciated on this exam. No pleural effusions or pneumothorax. Central and peripheral airways are patent and normal in caliber. Mediastinum: Heart size is normal. No pericardial effusion. No mediastinal adenopathy by size criteria. Thoracic aorta and central pulmonary arteries are normal in size. The thoracic aorta has scattered atherosclerotic calcifications. The coronary arteries have atherosclerotic calcifications. Esophagus is normal in caliber. Small hiatal hernia. Bones and chest wall: No suspicious bony lesions. No vertebral body compression fractures. No axillary or supraclavicular adenopathy by size criteria. Thyroid gland is normal. Spinal stimulator leads are seen in the thoracic spine. . Abdomen: Visualized upper abdominal solid organs and bowel loops appear normal in the absence of contrast. IMPRESSION: 1. No acute abnormality of the chest. 2. Coronary artery calcifications. Dictated by: Harshal Lu M.D. on 07/12/2021 at 14:56 Approved by: Harshal Lu M.D. on 07/12/2021 at 15:01
== END ==
PROVIDERS: Family Provider Neurological Surgery; PCP Family Medicine; Referring Provider Family Medicine; Visit Provider Family Medicine
DX: R91.8 Other nonspecific abnormal finding of lung field (principal); I25.10 Atherosclerotic heart disease of native coronary artery without angina pectoris
CPT/HCPCS: 71250

== ENCOUNTER → 2021-08-17 09:54 | Outpatient (CLI) | payer MEDICARE, OTHER, SELFPAY ==
--- NOTE | 2021-08-17 | DI.MG.S_ITS ---
BILATERAL DIGITAL SCREENING MAMMOGRAM 3D/2D WITH CAD: 08/17/2021 CLINICAL: Routine screening. Family history of breast cancer. Comparison is made to exams dated: 05/21/2020 mammogram, 04/16/2018 mammogram, and 02/01/2017 mammogram - [facility]. There are scattered fibroglandular elements in both breasts. Current study was also evaluated with a Computer Aided Detection (CAD) system. No significant masses, calcifications, or other findings are seen in either breast. There has been no significant interval change. IMPRESSION: NEGATIVE There is no mammographic evidence of malignancy. A 1 year screening mammogram is recommended. This exam was interpreted at Station ID: [id number]. NOTE: For mammograms, a report in lay terms will be sent to the patient. Approximately 15% of breast malignancies will not be visualized mammographically. In the management of a palpable breast mass, a negative mammogram must not discourage biopsy of a clinically suspicious lesion. Electronically Signed By: Michelle guillaume/grupo:08/17/2021 12:32:20 letter sent: Normal Exam ACR BI-RADS Category 1: Negative [id number]
== END ==
PROVIDERS: Family Provider Neurological Surgery; PCP Family Medicine; Referring Provider Family Medicine; Visit Provider Family Medicine
DX: Z12.31 Encounter for screening mammogram for malignant neoplasm of breast (principal); Z80.3 Family history of malignant neoplasm of breast
CPT/HCPCS: 77063; 77067

== ENCOUNTER → 2022-01-20 09:38 | Outpatient (CLI) | payer MEDICARE, OTHER, SELFPAY ==
--- NOTE | 2022-01-20 | DI.CT.S_ITS ---
PROCEDURE: CT CHEST WO CON INDICATIONS: Other nonspecific abnormal finding of lung field TECHNIQUE: Noncontrast 5 mm thick sections acquired from the pulmonary apices to the posterior costophrenic angles. 1 mm lung window, 5 mm thick coronal and sagittal and 7 mm axial MIP reformats were then acquired. For radiation dose reduction, the following was used: automated exposure control, adjustment of mA and/or kV according to patient size. COMPARISON: CT, CT ANGIO CHEST PE PROTOCOL, 01/24/2021, 20:28. [facility], CT, CT CHEST WO CON, 05/31/2021, 10:02. [facility], CT, CT CHEST WO CON, 04/19/2021, 9:18. [facility], CT, CT CHEST WO CON, 03/10/2021, 10:41. [facility], CT, CT CHEST WO CON, 02/08/2021, 9:46. [facility], CT, CT CHEST WO CON, 07/12/2021, 13:25. FINDINGS: Image quality: Excellent. Lungs and pleura: There is a 0.6 cm nodule in the right middle lobe abutting the major minor fissure (series 3 image 99), unchanged in size. Mild thickening of minor fissure is also stable. A 0.5 cm ground-glass nodule is seen in the right upper lobe (series 3, image 61), unchanged. There is a 0.4 cm nodule in the left upper lobe (series 3, image 28), No acute air space opacities. No pleural effusions or pneumothorax. Central and peripheral airways are patent and normal in caliber. Mediastinum: Heart size is normal. There is moderate coronary artery calcification. No pericardial effusion. No mediastinal adenopathy by size criteria. Thoracic aorta and central pulmonary arteries are normal in size. Esophagus is normal in caliber. Small hiatal hernia. Bones and chest wall: Old healed right 5th, 6th and 7th rib fractures are noted. No suspicious bony lesions. No vertebral body compression fractures. No axillary or supraclavicular adenopathy by size criteria. Thyroid gland is normal. Abdomen: Visualized upper abdominal solid organs and bowel loops appear normal in the absence of contrast. IMPRESSION: 1. Stable examination. Right upper lobe, right middle lobe and left upper lobe are all stable, suggesting a benign process. A follow-up CT in 12 months is suggested. 2. Moderate coronary artery calcification. 3. Small hiatal hernia. Dictated by: Cammie Ramirez M.D. on 01/20/2022 at 11:55 Approved by: Cammie Ramirez M.D. on 01/20/2022 at 12:07
== END ==
PROVIDERS: Family Provider Neurological Surgery; PCP Family Medicine; Referring Provider Family Medicine; Visit Provider Family Medicine
DX: R91.8 Other nonspecific abnormal finding of lung field (principal); I25.10 Atherosclerotic heart disease of native coronary artery without angina pectoris; K44.9 Diaphragmatic hernia without obstruction or gangrene
CPT/HCPCS: 71250

== ENCOUNTER → 2022-02-23 10:25 | Outpatient (CLI) | payer MEDICARE, OTHER, SELFPAY ==
--- NOTE | 2022-02-23 | DI.RAD.S_ITS ---
PROCEDURE: XR CHEST 2V INDICATIONS: ACUTE COUGH TECHNIQUE: 2 views of the chest were acquired. COMPARISON: [facility], CR, XR CHEST 2V, 01/24/2021, 17:00. FINDINGS: Surgical changes and devices: Spinal stimulator leads partially visualized. Lungs and pleura: Increased borderline cephalization of pulmonary vessels. Possible mildly increased interstitial markings in the central/perihilar lungs. Borderline dilated appearance of the central pulmonary vasculature. No pleural effusions or pneumothorax. Mediastinum: Mediastinal contours are normal. Heart size is normal. Bones and chest wall: No suspicious bony abnormalities. Soft tissues appear unremarkable. IMPRESSION: Findings suggestive of passive pulmonary venous congestion. Correlate with BNP. Otherwise no acute finding. Dictated by: Cliff Treviño M.D. on 02/23/2022 at 13:13 Approved by: Cliff Treviño M.D. on 02/23/2022 at 13:14
== END ==
PROVIDERS: Family Provider Neurological Surgery; PCP Family Medicine; Referring Provider Registered Nurse; Visit Provider Registered Nurse
DX: R05.1 Acute cough (principal)
CPT/HCPCS: 71046

== ENCOUNTER → 2022-03-30 11:28 | Outpatient (CLI) | payer MEDICARE, OTHER, SELFPAY ==
--- NOTE | 2022-03-30 | DI.RAD.S_ITS ---
PROCEDURE: XR CHEST 2V INDICATIONS: cough TECHNIQUE: 2 views of the chest were acquired. COMPARISON: [facility], , XR CHEST 2V, 02/23/2022, 10:27. [facility], CR, XR CHEST 2V, 01/24/2021, 17:00. FINDINGS: Surgical changes and devices: Spinal leads at the lower thoracic spine as before. Lungs and pleura: Lungs are clear. No pleural effusions or pneumothorax. Mediastinum: Mediastinal contours are normal. Heart size is normal. Bones and chest wall: No suspicious bony abnormalities. Soft tissues appear unremarkable. IMPRESSION: No acute cardiopulmonary abnormality. Dictated by: Shayne Perez M.D. on 03/30/2022 at 14:38 Approved by: Shayne Perez M.D. on 03/30/2022 at 14:41
[2022-03-30 12:17] LABS: Influenza A - CEPHEID Flu A NEGATIVE (NEGATIVE); Influenza B - CEPHEID Flu B NEGATIVE (NEGATIVE); Respiratory Syncytial Virus Negative (Negative)
[2022-03-30 12:23] LABS: COVID-19 CEPHEID 4-PLEX PCR Negative (Negative)
== END ==
PROVIDERS: Family Provider Neurological Surgery; PCP Family Medicine; Visit Provider Family Medicine
DX: R05.1 Acute cough (principal); Z20.822 Contact with and (suspected) exposure to COVID-19
CPT/HCPCS: 0241U; 71046

== ENCOUNTER → 2022-09-14 14:24 | Outpatient (CLI) | payer MEDICARE, OTHER, SELFPAY ==
--- NOTE | 2022-09-14 | DI.RAD.S_ITS ---
PROCEDURE: XR RIBS RT MIN 3V W CXR 1V INDICATIONS: RIB PAIN TECHNIQUE: 2 views of the right ribs were acquired, along with a single view chest. COMPARISON: [facility], CT, CT CHEST WO CON, 01/20/2022, 9:47. [facility], CR, XR CHEST 2V, 02/23/2022, 10:27. FINDINGS: Surgical changes and devices: Dorsal column stimulator. Bones and chest wall: Deformity of multiple right lateral ribs from remote fracture. No acute fracture. No suspicious bony lesions. Overlying soft tissues appear unremarkable. Lungs and pleura: No pleural effusions or pneumothorax. Lungs appear clear. Mediastinum: Mediastinal contours appear normal. Heart size is normal. IMPRESSION: No acute displaced rib fractures identified. No acute pulmonary process. Dictated by: Fredrick Gonzalez M.D. on 09/14/2022 at 17:13 Approved by: Fredrick Gonzalez M.D. on 09/14/2022 at 17:19
== END ==
PROVIDERS: Family Provider Neurological Surgery; PCP Family Medicine; Referring Provider Registered Nurse; Visit Provider Registered Nurse
DX: R07.81 Pleurodynia (principal)
CPT/HCPCS: 71101

== ENCOUNTER → 2022-10-16 08:25 | Outpatient (CLI) | payer MEDICARE, OTHER, SELFPAY ==
--- NOTE | 2022-10-16 | DI.MG.S_ITS ---
BILATERAL DIGITAL SCREENING MAMMOGRAM 3D/2D WITH CAD: 10/16/2022 CLINICAL: Routine screening. Family history of breast cancer. Comparison is made to exams dated: 08/17/2021 mammogram, 05/21/2020 mammogram, and 04/16/2018 mammogram - [facility]. There are scattered areas of fibroglandular density in both breasts (category b / 25%-50% glandular tissue). Current study was also evaluated with a Computer Aided Detection (CAD) system. No significant masses, calcifications, or other findings are seen in either breast. There has been no significant interval change. IMPRESSION: NEGATIVE There is no mammographic evidence of malignancy. A 1 year screening mammogram is recommended. Based on the Tyrer Cuzick model (a risk assessment model) the patient's lifetime risk is 11.0% and her 10 year risk is 7.0%. According to the ACR, ACS, and NCCN guidelines, an annual breast MRI exam along with mammogram is recommended if the patient's lifetime risk is 20% or greater. This exam was interpreted at Station ID: [id number]. NOTE: For mammograms, a report in lay terms will be sent to the patient. Approximately 15% of breast malignancies will not be visualized mammographically. In the management of a palpable breast mass, a negative mammogram must not discourage biopsy of a clinically suspicious lesion. Electronically Signed By: Ilia boyce/grupo:10/16/2022 10:34:48 letter sent: Normal Exam ACR BI-RADS Category 1: Negative [id number]
== END ==
PROVIDERS: Family Provider Neurological Surgery; PCP Family Medicine; Referring Provider Family Medicine; Visit Provider Family Medicine
DX: Z12.31 Encounter for screening mammogram for malignant neoplasm of breast (principal); Z80.3 Family history of malignant neoplasm of breast
CPT/HCPCS: 77063; 77067

== ENCOUNTER → 2022-10-30 15:43 | Outpatient (CLI) | payer MEDICARE, OTHER, SELFPAY ==
--- NOTE | 2022-10-30 15:47 | DI.RAD.S_ITS ---
PROCEDURE: XR CHEST 2V INDICATIONS: Chest pressure TECHNIQUE: 2 views of the chest were acquired. COMPARISON: [facility], , XR CHEST 2V, 03/30/2022, 11:53. [facility], CR, XR CHEST 2V, 02/23/2022, 10:27. FINDINGS: Surgical changes and devices: Stable position of spinal leads at the lower thoracic spine. Lungs and pleura: Lungs are clear. No pleural effusions or pneumothorax. Mediastinum: Mediastinal contours are normal. Heart size is normal. Bones and chest wall: No suspicious bony abnormalities. Mild degenerative changes of the thoracic spine. Soft tissues appear unremarkable. IMPRESSION: No acute cardiopulmonary abnormality. Dictated by: Jl Mata M.D. on 10/30/2022 at 16:40 Approved by: Jl Mata M.D. on 10/30/2022 at 16:41
== END ==
PROVIDERS: Family Provider Neurological Surgery; PCP Family Medicine; Referring Provider Family Medicine; Visit Provider Family Medicine
DX: R07.89 Other chest pain (principal)
CPT/HCPCS: 71046

== ENCOUNTER → 2023-04-05 09:45 | Outpatient (CLI) | payer MEDICARE, OTHER, SELFPAY ==
--- NOTE | 2023-04-05 09:46 | DI.CT.S_ITS ---
PROCEDURE: CT CHEST WO CON INDICATIONS: MASS OF RIGHT LUNG TECHNIQUE: Noncontrast 5 mm thick sections acquired from the pulmonary apices to the posterior costophrenic angles. 1 mm lung window, 5 mm thick coronal and sagittal and 7 mm axial MIP reformats were then acquired. For radiation dose reduction, the following was used: automated exposure control, adjustment of mA and/or kV according to patient size. COMPARISON: [facility], CT, CT CHEST WO CON, 07/12/2021, 13:25. [facility], CR, XR CHEST 2V, 10/30/2022, 15:54. [facility], CT, CT CHEST WO CON, 01/20/2022, 9:47. FINDINGS: Image quality: Diagnostic. Lower Neck: No enlarged lymph nodes. Thyroid: No thyroid nodules which require sonographic follow up, per consensus guidelines. Axillae: No enlarged lymph nodes. Chest Wall: Unremarkable. Thoracic spinal cord stimulator leads are stable in positioning. Bones: Visualized osseous structures appear intact without acute fracture or focal destructive lesion. No acute compression fractures of the imaged spine. Lungs and Pleura: No pneumothorax or pleural effusions. Stable 3 mm left apical nodule (42/series 3). Previously described fissural based right middle lobe nodule is not well visualized. Stable 5 mm ground-glass nodule in the right upper lobe (76/series 3). No septal thickening or nodularity. No focal consolidation. No new suspicious nodule seen. Heart: Heart size is normal. No pericardial effusion. Coronary atherosclerotic vascular calcifications are noted. Thoracic Vessels: The aorta and pulmonary arteries demonstrate normal size. Mediastinum and Mary: No enlarged lymph nodes. Esophagus: No wall thickening. Small hiatal hernia. Upper Abdomen: Visualized upper abdomen solid organs and bowel loops appear normal. IMPRESSION: 1. CT chest without acute cardiopulmonary abnormalities. 2. Stable appearance of bilateral small pulmonary nodules consistent with a benign process. No new suspicious pulmonary nodules. Consider follow-up CT chest in 12 months if patient meets criteria for screening low-dose chest CT. 3. Small hiatal hernia. 4. Atherosclerosis. Dictated by: Isael Carlisle M.D. on 04/05/2023 at 12:12 Approved by: Isael Carlisle M.D. on 04/05/2023 at 12:27
== END ==
PROVIDERS: Family Provider Neurological Surgery; PCP Family Medicine; Referring Provider Family Medicine; Visit Provider Family Medicine
DX: R91.8 Other nonspecific abnormal finding of lung field (principal); K44.9 Diaphragmatic hernia without obstruction or gangrene; I25.10 Atherosclerotic heart disease of native coronary artery without angina pectoris
CPT/HCPCS: 71250

== ENCOUNTER → 2024-01-16 16:00 | Outpatient (CLI) | payer MEDICARE, OTHER, SELFPAY ==
--- NOTE | 2024-01-16 16:01 | DI.MG.S_ITS ---
BILATERAL DIGITAL SCREENING MAMMOGRAM 3D/2D WITH CAD: 01/16/2024 CLINICAL: Routine screening. Family history of breast cancer. Comparison is made to exams dated: 10/16/2022 mammogram, 08/17/2021 mammogram, and 05/21/2020 mammogram - [facility]. There are scattered areas of fibroglandular density (category b / 25%-50% glandular tissue). Current study was also evaluated with a Computer Aided Detection (CAD) system. No significant masses, calcifications, or other findings are seen in either breast. There has been no significant interval change. IMPRESSION: NEGATIVE There is no mammographic evidence of malignancy. A 1 year screening mammogram is recommended. Based on the Tyrer Cuzick model (a risk assessment model) the patient's lifetime risk is 10.4% and her 10 year risk is 7.2%. According to the ACR, ACS, and NCCN guidelines, an annual breast MRI exam along with mammogram is recommended if the patient's lifetime risk is 20% or greater. This exam was interpreted at Station ID: [id number]. NOTE: For mammograms, a report in lay terms will be sent to the patient. Approximately 15% of breast malignancies will not be visualized mammographically. In the management of a palpable breast mass, a negative mammogram must not discourage biopsy of a clinically suspicious lesion. Electronically Signed By: Nasir kidd/grupo:01/17/2024 09:08:01 letter sent: Normal Exam ACR BI-RADS Category 1: Negative
== END ==
LOC: MAMMO 16:01
PROVIDERS: Family Provider Neurological Surgery; PCP Family Medicine; Referring Provider Family Medicine; Visit Provider Family Medicine
DX: Z12.31 Encounter for screening mammogram for malignant neoplasm of breast (principal); Z80.3 Family history of malignant neoplasm of breast
CPT/HCPCS: 77063; 77067

== ENCOUNTER → 2024-02-26 13:50 | Outpatient (CLI) | payer MEDICARE, OTHER, SELFPAY ==
--- NOTE | 2024-02-27 17:44 | DI.NM.S_ITS ---
DATE OF SERVICE: 02/26/2024 NUCLEAR CARDIOLOGY MYOCARDIAL PERFUSION STUDY PROCEDURE PERFORMED: Exercise treadmill stress and rest myocardial perfusion imaging with gating to assess ejection fraction and regional wall motion. ORDERING PROVIDER: Anil Mcclain MD INDICATIONS: The patient is a 73-year-old female with postprandial chest pressure. CARDIAC STRESS: The patient was able to exercise for 7 minutes on a standard Bradly protocol suggesting very good exercise capacity with an ADRIANA of -22%, achieving a maximum heart rate of 133 BPM (89% of her predicted maximum). She had no chest discomfort or other anginal symptoms although slight pleuritic chest discomfort in recovery. Her resting ECG is normal. With stress, she develops 1 to 1.5 mm of flat to upsloping ST depression that resolves fairly promptly in recovery and thus is nonspecific for ischemia. Occasional PVCs were noted but no complex ectopy. At 6 minutes of exercise at a heart rate of 130 BPM, 26.2 millicuries of technetium-99m Myoview was injected and she was imaged 15 minutes later using a gated SPECT acquisition protocol. The day prior while at rest, she had been injected with 25.8 millicuries of technetium-99m Myoview was imaged 15 minutes later, again using a gated SPECT acquisition protocol. FINDINGS: 1. Raw data: There is fair myocardial tracer uptake with mild breast shadows noted. The heart-lung ratio is normal at 0.36 with a normal TID ratio of 0.67. 2. Quantitative gated SPECT: Post-stress ejection fraction is estimated at 92% but likely an overestimate because of relatively small left ventricular volumes. There are no focal wall motion abnormalities. Her resting ejection fraction is 79% but visually appears similar to that of the post-stress ejection fraction and with a similar contraction pattern. The resting end-diastolic volume is normal at 78 mL. 3. Myocardial perfusion imaging: Post-stress supine images show a fairly normal myocardial perfusion pattern with a very subtle mid anterior defect that completely resolves on the prone images,consistent with breast attenuation artifact. The resting images show a similar perfusion pattern without any clear areas of improvement. IMPRESSION: 1. Normal myocardial perfusion study. 2. Subtle, fixed mid anterior defect that resolves on prone imaging, consistent with breast attenuation artifact. There is no compelling perfusion evidence for myocardial ischemia or previous myocardial infarction. 3. High normal left ventricular systolic function without focal wall motion abnormality and normal left ventricular volumes. 4. Very good exercise capacity without concerning chest discomfort. While she had some nonspecific ST depression with exercise, the absence of any concerning perfusion defects on perfusion imaging suggests this represents a false positive finding, but clinical correlation is recommended. Ely Mark - SHAQ/santo/NICKO doc#: [id number]/job#: [id number] dd: 02/27/2024 16:37:00 dt: 02/27/2024 17:28:00 DICTATING MD/COPIES TO: Anil aPcheco MD; Anil Mcclain MD COPIES MNE: DINESH;
== END ==
PROVIDERS: Family Provider Neurological Surgery; PCP Family Medicine; Referring Provider Family Medicine; Visit Provider Family Medicine
DX: R07.2 Precordial pain (principal)
CPT/HCPCS: 78452; 93017; A9502

== ENCOUNTER 2024-03-12 11:07 | Day surgery (SDC) | payer MEDICARE, OTHER, SELFPAY ==
[2024-03-12 11:39] VITALS: BP 129/75; PULSE 50; RESP 20; TEMP 36.3; O2SAT 97
--- NOTE | 2024-03-12 12:53 | PM.PREOP ---
Pre-operative Note COVID-19 COVID-19 status: Not tested Interval Note History & Physical reviewed/Exam performed by Physician: Yes Changes to H&P: No ASA Class (for procedural sedation): III
--- NOTE | 2024-03-12 13:16 | PM.OP.EGD ---
Operative Date/Time/Diagnoses Date of procedure: 03/12/24 Time of procedure: 13:16 Pre-op diagnosis: Dysphagia Post-op diagnosis: same Procedure & Clinicians Study performed: Esophagogastroduodenoscopy Same procedure as scheduled: Yes Surgeon: Wisam Myers Procedure Notes Procedure in detail: Surgeon: Wisam Myers MD Anesthesia: Susie Coronado CRNA A timeout was performed. A bite blocked was placed. The patient was positioned in the left lateral decubitus position. Anesthesia was administered. The endoscope was inserted through the bite block and passed through the esophagus and stomach and into the duodenum. The duodenal mucosa appeared normal. The scope was withdrawn into the duodenal bulb and no abnormalities were found. The scope was withdrawn into the stomach. No abnormalities were seen The rest of the stomach was normal. The scope was retroflexed and a hiatal hernia was noted. The scope was withdrawn into the esophagus and the hiatal hernia was examined and was approximately 3 cm. There was no obvious stricture. We did dilation 12 mm for 30 seconds, 13.5 mm for 30 seconds and 15 mm for 30 seconds. There was no gross trauma to the mucosa at the conclusion of the dilation. The remainder of the esophagus was normal. The scope was withdrawn. The patient was awakened and brought to recovery. Sedation time: 15 minutes Findings: Roughly 3 cm hiatal hernia, no obvious esophageal stricture Post-procedure Disposition: PACU
[2024-03-12 13:19] VITALS: BP 116/53; PULSE 55; RESP 15; TEMP 36.2; O2SAT 94
[2024-03-12 13:24] VITALS: BP 119/48; PULSE 54; RESP 14; O2SAT 96
[2024-03-12 13:30] VITALS: BP 132/60; PULSE 47; RESP 17; TEMP 36.8; O2SAT 97
== END 2024-03-12 13:47 | disposition home or self-care (01) ==
PROVIDERS: Family Provider Neurological Surgery; PCP Family Medicine; Referring Provider Surgery; Visit Provider Surgery
PROC: 0DJ08ZZ Inspection of Upper Intestinal Tract, Via Natural or Artificial Opening Endoscopic (ICD-10-PCS; CPT 43249; principal; 2024-03-12 14:30)
DX: R13.10 Dysphagia, unspecified (principal); K44.9 Diaphragmatic hernia without obstruction or gangrene
CPT/HCPCS: 43249; J2704

== ENCOUNTER → 2024-09-14 09:17 | Outpatient (CLI) | payer MEDICARE, SELFPAY ==
--- NOTE | 2024-09-14 | DI.MRI.S_ITS ---
PROCEDURE: MR KNEE LT WO CON INDICATIONS: KNEE PAIN TECHNIQUE: Noncontrast sagittal PD fast spin echo and T2 fast spin echo with fat saturation, sagittal 3-D FLASH with fat saturation; coronal T1 spin echo and PD fast spin echo with fat saturation, and axial PD fast spin echo with fat saturation through the knee. COMPARISON: None. FINDINGS: Image quality: Excellent. Bones and cartilage: Moderate diffuse increased T2 weighted signal/edema in the medial femoral condyle middle and posterior 1/3 and in the middle and anterior 1/3 of the medial tibial plateau suggestive of bone contusions and subchondral edema related to marked degenerative changes with near [id number] configuration, irregular diffuse cartilaginous thinning with focal areas of focal cartilage defects measuring up to 6 mm diameter. The lateral compartment cartilage demonstrates mild diffuse thinning. Moderate diffuse thinning in the patellofemoral cartilage most notably in the medial patellar facet. Menisci: Markedly abnormal appearance of the medial meniscus with maceration/degeneration, fraying of the free edges, in the midbody extending into the anterior and posterior horns. The lateral meniscus is grossly normal in size and signal intensity. Cruciate ligaments: Moderate increased T2 weighted signal and thinning in the mid and distal aspect of the anterior cruciate ligament with some intact fibers suspicious for injury/strain or partial tear without complete tear. Posterior cruciate ligament is normal. Medial structures: Abnormal increased T2 weighted signal/edema within and surrounding the medial collateral ligament suspicious for grade 2 injury however there appears to be thinning of the distal fibers suggestive of near complete tear without retraction. The semimembranosus tendon insertions, oblique popliteal ligament, and meniscocapsular junction appear intact. Visualized portions of the pes anserinus tendons appear normal. No abnormal bursal fluid. Lateral structures: The lateral collateral ligament, long and short heads of the biceps femoris tendon appear intact. The popliteus tendon appears normal. Iliotibial band appears normal. Anterior structures: Mild increased T2 weighted signal and thickening of the distal quadriceps tendon, tendinopathy. Patellar ligament is normal. Patellar alignment is normal. No femoral trochlear dysplasia or ventral trochlear prominence. No edema in the infrapatellar fat pad. Joint space: Mild knee joint effusion. Moderate popliteal cyst partially ruptured medially and inferiorly into the adjacent soft tissues in total measures up to approximately 10 cm cc by 4 cm AP by 2 cm transverse maximal dimensions. IMPRESSION: Partially ruptured popliteal cyst as discussed above may be a cause of posterior medial pain. Markedly abnormal appearance in the medial compartment with [id number] configuration, maceration/degeneration of the medial meniscus, bone edema, cartilage defects as discussed above. Medial collateral ligament grade 2 injury with near complete tear. Mild injury/strain mid and distal anterior cruciate ligament. Other findings as above. Dictated by: Myron Pablo M.D. on 09/15/2024 at 14:50 Approved by: Myron Pablo M.D. on 09/15/2024 at 15:13
--- NOTE | 2024-09-14 | DI.MRI.S_ITS ---
PROCEDURE: MR KNEE RT W CON INDICATIONS: KNEE PAIN TECHNIQUE: After the administration of 50 mL of dilute intra-articular Gadolinium contrast, sagittal T1 spin echo with fat saturation and PD fast spin echo with fat saturation, coronal T1 spin echo with and without fat saturation, coronal T2 fast spin echo with fat saturation, axial PD fast spin echo with fat saturation through the knee. COMPARISON: None. FINDINGS: Image quality: Excellent. Some images are limited by patient motion artifacts, with associated low [id number]. Menisci: Markedly abnormal appearance of the medial meniscus with maceration/degenerative tear is of the mid body extending into the posterior horn greater than anterior horn with blunting of the apices on the sagittal images. Posterior meniscocapsular separation medial and laterally. The lateral meniscus is normal in size and signal intensity. Cruciate ligaments: Mild diffuse increased T2 weighted signal and thinning of the distal anterior cruciate ligament suspicious for mild injury/strain but with intact fibers without complete tear. Posterior cruciate ligament demonstrates mild increased T2 weighted signal proximally otherwise is normal in size and configuration without complete tear. Medial structures: [id number] increased T2 weighted signal/edema surrounding the medial collateral ligament and in the distal aspect of the ligament with some thinning suggesting grade 2 injury without complete tear or retraction. The semimembranosus tendon demonstrates mild increased T2 weighted signal distally, mild tendinopathy. Visualized portions of the pes anserinus tendons appear normal. Lateral structures: Mild increased T2 weighted signal and fluid in the distal popliteus muscle and surrounding the distal tendon, suspicious for injury/strain, partial tear and or tendinopathy. The lateral collateral ligament, long and short heads of the biceps femoris tendon appear intact. Iliotibial band appears normal. Anterior structures: Mild up to 4 mm lateral subluxation of the patella in relation to the femoral trochlea. The quadriceps and patellar tendons appear intact. No edema in the infrapatellar fat pad. Bone and cartilage: Moderate diffuse cartilaginous thinning in the medial and lateral patellar facets and severe diffuse thinning with [id number] configuration in the medial compartment with underlying moderate diffuse subchondral edema in the weight- bearing aspects of the medial femoral condyle and medial tibial plateau. Apparent osteochondral defect in the medial aspect of the medial femoral condyle (sagittal series 11, image 21) measuring up to 7 mm diameter. Joint space: [id number] knee joint effusion. No significant popliteal cyst. IMPRESSION: Severe degenerative changes with near [id number]-[id number] configuration in the medial compartment, osteochondral defect and bone edema as discussed above. Edema within and adjacent to the medial collateral ligament suggests grade 2 injury with diffuse thinning distally. Marked degeneration/maceration tear of the medial meniscus. Knee joint effusion. Tendinopathies and Other findings as above Dictated by: Myron Pablo M.D. on 09/15/2024 at 15:42 Approved by: Myron Pablo M.D. on 09/15/2024 at 16:00
== END ==
PROVIDERS: Family Provider Neurological Surgery; PCP Family Medicine; Referring Provider Orthopaedic Surgery; Visit Provider Orthopaedic Surgery
DX: M17.0 Bilateral primary osteoarthritis of knee (principal); M66.0 Rupture of popliteal cyst; S83.241A Other tear of medial meniscus, current injury, right knee, initial encounter; S83.412A Sprain of medial collateral ligament of left knee, initial encounter; S83.512A Sprain of anterior cruciate ligament of left knee, initial encounter; M25.461 Effusion, right knee; M25.462 Effusion, left knee
CPT/HCPCS: 73721; 73722; A9579